=== PATIENT | male | born 1945 | race Caucasian/White ===

== ENCOUNTER → 2019-02-07 09:19 | Outpatient (CLI) | payer MEDICARE, SELFPAY ==
[2019-02-07 09:53] LABS: Add Manual Diff / Slide Review NO; Basophils Absolute Auto 100 /uL (0-100); Basophils Percent Auto 0.6 % (0-2); Eosinophils Absolute Auto 200 /uL (0-450); Eosinophils Percent Auto 1.1 % (2-4); Hematocrit 42.7 % (41-53); Hemoglobin 14.5 g/dL (13.5-17.5); Lymphocytes Absolute Auto 7100 /uL (1100-4500); Lymphocytes Percent Auto 49.4 % (25-40); Mean Corpuscular HGB Conc 33.8 % (30-36); Mean Corpuscular Volume 91.5 fL (80-100); Monocytes Absolute Auto 500 /uL (0-900); Monocytes Percent Auto 3.4 % (3-14); Neutrophils Absolute Auto 6500 /uL (1500-7000); Neutrophils Percent Auto 45.5 % (50-75); Platelet Count 195 X10^3/uL (150-400); Red Blood Cell Count 4.67 X10^6/uL (4.5-5.9); Red Cell Distribution Width 13.7 % (11.6-14.8); White Blood Cell Count 14.4 X10^3/uL (4.5-11.0)
[2019-02-07 10:12] LABS: Hemoglobin A1C% w Est Avg Glu 5.3 % (4.0-6.0)
[2019-02-07 11:41] LABS: Alanine Aminotransferase 23 IU/L (21-72); Albumin 4.2 g/dL (3.5-5.0); Albumin Globulin Ratio 1.8 (1.0-2.8); Alkaline Phosphatase 89 U/L (38-126); Aspartate Aminotransferase 15 IU/L (17-59); BUN Creatinine Ratio 17.8 (6-22); Bilirubin Total 0.5 mg/dL (0.2-1.3); Blood Urea Nitrogen 16 mg/dL (9-20); Calcium 9.4 mg/dL (8.4-10.2); Carbon Dioxide 25 mmol/L (22-32); Chloride 106 mmol/L (98-107); Estimated Glomerular Filt Rate > 60.0 mL/min (>60); Globulin 2.4 g/dL (1.7-4.1); Glucose 97 mg/dL (80-110); HEMOLYSIS < 15 (0-50); Potassium 5.2 mmol/L (3.4-5.1); Sodium 141 mmol/L (137-145); Total Protein 6.6 g/dL (6.3-8.2)
[2019-02-07 12:11] LABS: Prostate Specific Antigen 5.96 ng/mL (0.10-4.00)
== END ==
PROVIDERS: PCP Family Medicine; Visit Provider Hospitalist
DX: C61 Malignant neoplasm of prostate (principal); R21 Rash and other nonspecific skin eruption
CPT/HCPCS: 36415; 80053; 83036; 84153; 85025

== ENCOUNTER → 2019-02-21 09:17 | Outpatient (CLI) | payer MEDICARE, SELFPAY ==
[2019-02-21 10:09] LABS: Hematocrit 40.3 % (41-53); Hemoglobin 13.9 g/dL (13.5-17.5); Mean Corpuscular HGB Conc 34.5 % (30-36); Mean Corpuscular Hemoglobin 31.5 PG (26-34); Mean Corpuscular Volume 91.3 fL (80-100); Platelet Count 184 X10^3/uL (150-400); Red Blood Cell Count 4.41 X10^6/uL (4.5-5.9); Red Cell Distribution Width 13.7 % (11.6-14.8); White Blood Cell Count 10.6 X10^3/uL (4.5-11.0)
[2019-02-21 10:33] LABS: Neutrophils Absolute Manual 5512 /uL (3000-5900); Total Cells Counted 100
[2019-02-21 10:35] LABS: RBC Morphology Normal Morphology
== END ==
PROVIDERS: PCP Family Medicine; Visit Provider Hospitalist
DX: D72.820 Lymphocytosis (symptomatic) (principal)
CPT/HCPCS: 36415; 85025

== ENCOUNTER → 2021-04-18 10:21 | Outpatient (CLI) | payer MEDICARE, SELFPAY ==
[2021-04-18 11:25] LABS: Cholesterol 182 mg/dL (140-199); HDL Cholesterol 38 mg/dL (40-60); LDL Cholesterol Calculated 123 mg/dL (<100); Triglycerides 103 mg/dL (35-150)
[2021-04-18 11:44] LABS: Vitamin D 25 Hydroxy (D3) 47.3 ng/mL (30.0-100.0)
[2021-04-18 11:56] LABS: Prostate Specific Antigen 0.593 ng/mL (0.10-4.00)
== END ==
PROVIDERS: PCP Student in an Organized Health Care Education/Training Program; Referring Provider Student in an Organized Health Care Education/Training Program; Visit Provider Student in an Organized Health Care Education/Training Program
DX: C61 Malignant neoplasm of prostate (principal); I10 Essential (primary) hypertension; E55.9 Vitamin D deficiency, unspecified; Z13.220 Encounter for screening for lipoid disorders
CPT/HCPCS: 36415; 80061; 82306; 84153

== ENCOUNTER → 2021-04-21 06:51 | Outpatient (CLI) | payer MEDICARE, SELFPAY ==
--- NOTE | 2021-04-21 06:53 | DI.US.S_ITS ---
PROCEDURE: US ABD AORTA ANEURYSM SCREEN INDICATIONS: AAA SCREEN TECHNIQUE: Real time scanning was performed of the aorta and iliac arteries, with image documentation. COMPARISON: None. FINDINGS: Aorta: Proximal aortic diameter measures 2.3 cm. Mid-aorta measures 1.8 cm. Distal aortic diameter is 1.9 cm. Iliac arteries: Right common iliac artery measures 1.2 cm. Left common iliac artery measures 1.2 cm. IMPRESSION: No aneurysmal dilation. Dictated by: Lindsay Botello M.D. on 04/21/2021 at 10:39 Approved by: Lindsay Botello M.D. on 04/21/2021 at 10:39
== END ==
PROVIDERS: PCP Student in an Organized Health Care Education/Training Program; Referring Provider Student in an Organized Health Care Education/Training Program; Visit Provider Student in an Organized Health Care Education/Training Program
DX: Z13.6 Encounter for screening for cardiovascular disorders (principal); Z87.891 Personal history of nicotine dependence
CPT/HCPCS: 76706

== ENCOUNTER → 2021-04-25 08:54 | Outpatient (CLI) | payer MEDICARE, SELFPAY ==
[2021-04-26 07:14] LABS: Fecal Immunochemical Test Negative (Negative)
== END ==
PROVIDERS: PCP Student in an Organized Health Care Education/Training Program; Referring Provider Student in an Organized Health Care Education/Training Program; Visit Provider Student in an Organized Health Care Education/Training Program
DX: Z12.11 Encounter for screening for malignant neoplasm of colon (principal)
CPT/HCPCS: 82274

== ENCOUNTER → 2021-07-06 09:38 | Outpatient (CLI) | payer MEDICARE, SELFPAY ==
[2021-07-06 11:36] LABS: Alanine Aminotransferase 20 IU/L (<50); Albumin 4.3 g/dL (3.5-5.0); Albumin Globulin Ratio 1.6 (1.0-2.8); Alkaline Phosphatase 102 U/L (38-126); Aspartate Aminotransferase 22 IU/L (17-59); Bilirubin Total 0.6 mg/dL (0.2-1.3); Bilirubin Unconjugated 0.4 mg/dL (0.0-1.1); Cholesterol 153 mg/dL (140-199); Globulin 2.7 g/dL (1.7-4.1); HDL Cholesterol 36 mg/dL (40-60); HEMOLYSIS < 15 (0-50); LDL Cholesterol Calculated 98 mg/dL (<100); Triglycerides 96 mg/dL (35-150)
== END ==
PROVIDERS: PCP Student in an Organized Health Care Education/Training Program; Referring Provider Student in an Organized Health Care Education/Training Program; Visit Provider Student in an Organized Health Care Education/Training Program
DX: E78.00 Pure hypercholesterolemia, unspecified (principal); Z79.899 Other long term (current) drug therapy
CPT/HCPCS: 36415; 80061; 80076

== ENCOUNTER → 2021-10-13 14:04 | Outpatient (CLI) | payer MEDICARE, SELFPAY ==
[2021-10-13 15:43] LABS: Prostate Specific Antigen 0.398 ng/mL (0.10-4.00)
== END ==
PROVIDERS: PCP Student in an Organized Health Care Education/Training Program; Referring Provider Student in an Organized Health Care Education/Training Program; Visit Provider Student in an Organized Health Care Education/Training Program
DX: C61 Malignant neoplasm of prostate (principal)
CPT/HCPCS: 36415; 84153

== ENCOUNTER → 2022-01-10 12:48 | Outpatient (CLI) | payer MEDICARE, SELFPAY ==
--- NOTE | 2022-01-10 | DI.RAD.S_ITS ---
PROCEDURE: XR LUMBAR SPINE 2-3V INDICATIONS: back pain TECHNIQUE: 3 views of the lumbar spine were acquired. COMPARISON: [facility], , L-SPINE 2-3 VIEWS, 05/22/2012, 9:01. FINDINGS: Bones: 5 [id number] vertebrae are present. There is grade 1 retrolisthesis of L1 on L2 secondary to degenerative disc disease. No vertebral body compression fractures. No suspicious bony lesions. Disc space narrowing and degenerative endplate changes are seen at L1-2 and to a lesser extent at L5-S1. Facet hypertrophy is seen from L2-3 through L5-S1. Overall, findings have mildly progressed when compared to the prior radiographs from 05/22/2012. Soft tissues: Overlying bowel gas pattern is normal. No suspicious soft tissue calcifications. IMPRESSION: No acute osseous abnormality. Multilevel spondylosis. Dictated by: Dominick Aiken M.D. on 01/10/2022 at 16:35 Approved by: Dominick Aiken M.D. on 01/10/2022 at 16:36
== END ==
PROVIDERS: PCP Student in an Organized Health Care Education/Training Program; Referring Provider Physician Assistant; Visit Provider Physician Assistant
DX: M47.816 Spondylosis without myelopathy or radiculopathy, lumbar region (principal); M47.817 Spondylosis without myelopathy or radiculopathy, lumbosacral region; M54.50 Low back pain, unspecified
CPT/HCPCS: 72100

== ENCOUNTER → 2022-01-16 11:58 | Outpatient (CLI) | payer MEDICARE, SELFPAY ==
--- NOTE | 2022-01-16 12:00 | DI.RAD.S_ITS ---
PROCEDURE: XR ANKLE LT 2V INDICATIONS: Anterior ankle pain TECHNIQUE: 3 nonweightbearing views of the ankle were acquired. COMPARISON: None. FINDINGS: Bones: No acute fractures or dislocations. Ankle mortise is normally aligned. No suspicious bony lesions. Soft tissues: Mild soft tissue edema surrounding the ankle. No suspicious calcification. IMPRESSION: No acute osseous abnormality. If the symptoms persist, consider cross sectional imaging such as MRI or CT for further assessment. Dictated by: Dominick Aiken M.D. on 01/16/2022 at 16:37 Approved by: Dominick Aiken M.D. on 01/16/2022 at 16:45
== END ==
PROVIDERS: PCP Student in an Organized Health Care Education/Training Program; Referring Provider Student in an Organized Health Care Education/Training Program; Visit Provider Student in an Organized Health Care Education/Training Program
DX: M25.572 Pain in left ankle and joints of left foot (principal)
CPT/HCPCS: 73600

== ENCOUNTER 2022-01-23 18:12 | Emergency (ER) | payer MEDICARE, SELFPAY ==
[2022-01-23] VITALS (11 sets, daily range): BP systolic 142–191; BP diastolic 70–104; PULSE 72–93; RESP 17–30; TEMP 37; O2SAT 95–100; BMI 31.2
--- NOTE | 2022-01-23 18:40 | DI.CT.S_ITS ---
PROCEDURE: CT ABDOMEN PELVIS W CON INDICATIONS: LLQ pain, hx diverticulosis TECHNIQUE: After the administration of intravenous contrast, axial sections acquired from the lung bases to the pubic symphysis. Coronal and sagittal reformats were performed. For radiation dose reduction, the following was used: automated exposure control, adjustment of mA and/or kV according to patient size. COMPARISON: None. FINDINGS: Image quality: Excellent. Lung bases: Unremarkable. Heart: No significant findings. ABDOMEN: Liver: No focal hepatic mass. Gallbladder: Normally distended and otherwise normal. Biliary ducts: Nondilated Pancreas: Unremarkable. Spleen: Unremarkable. Adrenal Glands: Unremarkable. Kidneys and Ureters: No hydronephrosis or hydroureter. Multiple bilateral renal cysts. Symmetric bilateral perinephric fat stranding. Stomach and Bowel: No abnormally dilated or thickened loop of bowel. No pericolonic or mesenteric inflammatory fat stranding. Engorged Vasa recta adjacent to the sigmoid colon. Sigmoid diverticulosis. Peritoneum: No abnormal intraperitoneal fluid. No free air. Ventral Wall: No hernias. Abdominal Nodes: No retroperitoneal or mesenteric adenopathy by size criteria. Vessels: Aorta and inferior vena cava are normal in size. PELVIS: Pelvic Organs: Unremarkable. Bladder: Unremarkable. Pelvic Nodes: No enlarged lymph nodes. Miscellaneous: No hernias are seen. Bones: Unremarkable. IMPRESSION: Sigmoid diverticulosis with engorged Vasa recta adjacent to the sigmoid colon. This could represent early changes of sigmoid diverticulitis. No acute finding otherwise. Dictated by: Waldemar Jordan M.D. on 01/23/2022 at 19:48 Approved by: Waldemar Jordan M.D. on 01/23/2022 at 19:52
[2022-01-23] MEDS: SODIUM CHLORIDE 0.9% 1,000 ML 1000 ML IV (18:51)
[2022-01-23 18:58] LABS: Basophils Absolute Auto 0 /uL (0-100); Basophils Percent Auto 0.1 % (0-2); Eosinophils Absolute Auto 100 /uL (0-450); Eosinophils Percent Auto 0.3 % (2-4); Hematocrit 44.4 % (41-53); Hemoglobin 15.3 g/dL (13.5-17.5); Lymphocytes Absolute Auto 17600 /uL (1100-4500); Lymphocytes Percent Auto 67.5 % (25-40); Mean Corpuscular HGB Conc 34.5 % (30-36); Mean Corpuscular Hemoglobin 31.3 PG (26-34); Mean Corpuscular Volume 90.8 fL (80-100); Monocytes Absolute Auto 600 /uL (0-900); Monocytes Percent Auto 2.3 % (3-14); Neutrophils Absolute Auto 7800 /uL (1500-7000); Neutrophils Percent Auto 29.8 % (50-75); Platelet Count 212 X10^3/uL (150-400); Red Blood Cell Count 4.89 X10^6/uL (4.5-5.9); Red Cell Distribution Width 14.6 % (11.6-14.8); White Blood Cell Count 26.1 X10^3/uL (4.5-11.0)
[2022-01-23 19:16] LABS: Add Manual Diff / Slide Review SLIDE REVIEW; RBC Morphology Normal Morphology; Smudge Cells 1+
[2022-01-23 19:28] LABS: Alanine Aminotransferase 19 IU/L (<50); Albumin 4.5 g/dL (3.5-5.0); Albumin Globulin Ratio 1.6 (1.0-2.8); Alkaline Phosphatase 91 U/L (38-126); Aspartate Aminotransferase 20 IU/L (17-59); BUN Creatinine Ratio 14.1 (6-22); Bilirubin Total 0.8 mg/dL (0.2-1.3); Blood Urea Nitrogen 13 mg/dL (9-20); Calcium 9.9 mg/dL (8.4-10.2); Carbon Dioxide 24 mmol/L (22-32); Chloride 107 mmol/L (98-107); Estimated Glomerular Filt Rate > 60.0 mL/min (>60); Globulin 2.9 g/dL (1.7-4.1); Glucose 109 mg/dL (80-110); HEMOLYSIS < 15 (0-50); Lipase 69 U/L (23-300); Sodium 140 mmol/L (137-145); Total Protein 7.4 g/dL (6.3-8.2)
[2022-01-23 19:29] LABS: Lactate (Lactic Acid) 0.8 mmol/L (0.7-2.1)
--- NOTE | 2022-01-23 19:40 | ED.GENADULT ---
HPI - General Adult General Chief complaint: Abdominal Pain Stated complaint: Left Sided Abd Pain, Hx Diverticulitis Time Seen by Provider: 01/23/22 18:39 Source: patient Mode of arrival: Ambulatory History of Present Illness HPI narrative: 76-year-old gentleman with a history of hyperlipidemia has been having problems with left-sided sciatica for the last 3 weeks with unrelenting pain and sleeping only 2-3 hours a night for the last 3 weeks. He began having left lower quadrant pain 2-3 days ago that he assumed was secondary to his sciatic issues. Notes that he has had prostate cancer with radiation and does have difficulty starting his stream and completely emptying but that has not changed recently he denies any fevers until today when he had an episode where he felt warm and flushed. No vomiting. He had an episode of diarrhea here in the emergency department associated with bright red blood from his hemorrhoids. He states that he occasionally has hemorrhoidal bleeding such as this. He denies any headaches, chest pain, palpitations Related Data Home Medications Medication Instructions Recorded Confirmed tizanidine 4 mg capsule 4 mg PO TID PRN 01/16/22 01/16/22 Previous Rx's Medication Instructions Recorded pravastatin 20 mg tablet 20 mg PO BEDTIME #90 tab 11/01/21 amoxicillin-potassium clavulanate 1 tab PO BID #20 tab 01/23/22 1,000 mg-62.5 mg tablet,ext.rel 12hr (Augmentin XR) oxycodone-acetaminophen 5 mg-325 1 tab PO Q6H PRN #14 tab 01/23/22 mg tablet Allergies Allergy/AdvReac Type Severity Reaction Status Date / Time No Known Drug Allergies Allergy Verified 01/23/22 18:37 Review of Systems Review of Systems Narrative: Remainder of complete review of systems is otherwise unremarkable except for that included in the HPI. Patient History Medical History (Updated 01/23/22 @ 23:08 by Michelle Yuen MD) Melanoma Prostate CA Pure hypercholesterolemia Social History Smoking Status: Current every day smoker Smoking Status: Current every day smoker alcohol intake frequency: other Substance Use Type: marijuana Exam Initial Vital Signs Initial Vital Signs: Vital Signs Temperature 98.6 F 01/23/22 18:36 Pulse Rate 92 H 01/23/22 18:36 Respiratory Rate 17 01/23/22 18:36 Blood Pressure 142/89 H 01/23/22 18:36 Pulse Oximetry 97 01/23/22 18:36 General: Healthy appearing, in no acute distress. Able to give a complete and coherent history. Well-nourished well-developed HEENT: Moist mucous membranes, normal sclera with reactive pupils, Neck: No JVD, supple Respiratory: Lungs are clear to auscultation, no wheezing no rales no rhonchi. Full and symmetrical air movement Cardiac: Regular rate and rhythm no murmurs no bruits Abdomen: Soft, significantly tender in the left lower quadrant without rebound or guarding, good bowel tones, no flank pain Skin: Warm and dry, no rashes Neurologic: Grossly neurologically intact with no obvious asymmetries or abnormalities Spine: He does not have any tenderness along the midline lumbar or thoracic spine but there is quite a bit of muscle spasm in the left lower lumbar area Extremities: No trauma, well perfused, positive straight leg lift on the left but normal reflexes. Psych: Cooperative, appropriate insight and affect Course Orders Ordered: ED Orders 01/23/22 18:40 CT abdomen pelvis w con Stat 01/23/22 18:45 Complete Blood Count AUTO DIFF Stat Comprehensive Metabolic Panel Stat Lactate (Lactic Acid) Stat Lipase Stat Pathologist Review (for CBC) Stat 01/23/22 19:48 Urine Microscopic Stat 01/23/22 20:00 COVID19 -Nasal swab/Pre-Proc Stat 01/23/22 20:24 Blood Culture Stat Discontinued Medications Hydromorphone HCl (Hydromorphone 0.5 Mg Inj) 0.5 mg IV Q15MIN PRN PRN Reason: Pain, Last Admin: 01/23/22 20:37 Dose: 0.5 mg Documented by: ATAYLOR Sodium Chloride (Normal Saline 0.9%) 1,000 mls @ 1,000 mls/hr IV BOLUS ONE Stop: 01/23/22 19:39 Last Infusion: 01/23/22 20:40 Dose: 0 mls/hr Documented by: Admin: 01/23/22 18:51 Dose: 1,000 mls/hr Documented by: ATAYLOR Piperacillin Sod/Tazobactam (Sod 4.5 gm/ Sodium Chloride) 100 mls @ 200 mls/hr IV NOW ONE Stop: 01/23/22 19:42 Last Infusion: 01/23/22 22:20 Dose: 0 mls/hr Documented by: Admin: 01/23/22 20:37 Dose: 200 mls/hr Documented by: TYLERYLOR Sodium Chloride (Normal Saline 0.9%) 1,000 mls @ 1,000 mls/hr IV BOLUS ONE Stop: 01/23/22 20:40 Last Admin: 01/23/22 20:38 Dose: Not Given Documented by: ATAYLOR Sodium Chloride (Normal Saline 0.9%) 1,000 mls @ 150 mls/hr IV CONT CANDACE Last Infusion: 01/23/22 23:44 Dose: 0 mls/hr Documented by: Admin: 01/23/22 20:37 Dose: 150 mls/hr Documented by: OGRDY Ondansetron HCl (Ondansetron 4 Mg/2 Ml Inj) 4 mg IV NOW ONE Stop: 01/23/22 18:41 Last Admin: 01/23/22 18:50 Dose: Not Given Documented by: PRINCEOR Ondansetron HCl (Ondansetron 4 Mg/2 Ml Inj) 4 mg IV NOW ONE Stop: 01/23/22 19:42 Last Admin: 01/23/22 20:37 Dose: 4 mg Documented by: GORDY Oxycodone/Acetaminophen (Oxycodone/Apap 5/325 Prepack) 1 bottle MISC SEEINSTR ONE Stop: 01/23/22 23:13 Last Admin: 01/23/22 23:44 Dose: 1 bottle Documented by: GORDY Vital Signs Vital signs: Vital Signs - 8 hr 01/23/22 18:36 01/23/22 19:48 01/23/22 19:49 Temperature 98.6 F Pulse Rate 92 H 82 Respiratory Rate 17 Blood Pressure 142/89 H 169/74 H Pulse Oximetry 97 96 98 01/23/22 20:00 01/23/22 20:30 01/23/22 20:31 Temperature Pulse Rate 83 81 81 Respiratory Rate Blood Pressure 191/104 H Pulse Oximetry 99 97 97 01/23/22 21:00 01/23/22 21:01 01/23/22 21:30 Temperature Pulse Rate 79 80 76 Respiratory Rate Blood Pressure 146/75 H 143/78 H Pulse Oximetry 96 96 96 01/23/22 22:00 01/23/22 22:30 Temperature Pulse Rate 72 93 H Respiratory Rate 30 H Blood Pressure 151/70 H Pulse Oximetry 95 100 Medical Decision Making Lab Data Result diagrams: 01/23/22 18:45 01/23/22 18:45 Labs: Lab Results 01/23/22 01/23/22 01/23/22 Range/Units 18:45 18:45 18:45 WBC 26.1 H (4.5-11.0) X10^3/uL RBC 4.89 (4.5-5.9) X10^6/uL Hgb 15.3 (13.5-17.5) g/dL Hct 44.4 (41-53) % MCV 90.8 (80-100) fL MCH 31.3 (26-34) PG MCHC 34.5 (30-36) % RDW 14.6 (11.6-14.8) % Plt Count 212 (150-400) X10^3/uL Neut % (Auto) 29.8 L (50-75) % Lymph % (Auto) 67.5 H (25-40) % [place] % (Auto) 2.3 L (3-14) % Eos % (Auto) 0.3 L (2-4) % Baso % (Auto) 0.1 (0-2) % Neut # (Auto) 7800 H (3280-1774) /uL Lymph # (Auto) 41160 H (6380-2682) /uL [place] # (Auto) 600 (0-900) /uL Eos # (Auto) 100 (0-450) /uL Baso # (Auto) 0 (0-100) /uL [place] Cells 1+ H RBC Morphology Normal morphology Sodium 140 (137-145) mmol/L Potassium 4.0 (3.4-5.1) mmol/L Chloride 107 (98-107) mmol/L Carbon Dioxide 24 (22-32) mmol/L BUN 13 (9-20) mg/dL Creatinine 0.92 (0.66-1.25) mg/dL Estimated GFR > 60.0 (>60) mL/min BUN/Creatinine Ratio 14.1 (6-22) Glucose 109 (80-110) mg/dL Lactate 0.8 (0.7-2.1) mmol/L Calcium 9.9 (8.4-10.2) mg/dL Total Bilirubin 0.8 (0.2-1.3) mg/dL AST 20 (17-59) IU/L ALT 19 (<50) IU/L Alkaline Phosphatase 91 (38-126) U/L Total Protein 7.4 (6.3-8.2) g/dL Albumin 4.5 (3.5-5.0) g/dL Globulin 2.9 (1.7-4.1) g/dL Albumin/Globulin Ratio 1.6 (1.0-2.8) Lipase 69 (23-300) U/L Urine RBC (0-5/HPF) Urine WBC (0-5/HPF) Ur Squamous Epith Cells (0-5/HPF) Urine Bacteria (None) Urine Mucus (Negative) Ur Culture Indicated? SARS-CoV-2 (PCR) (Negative) 01/23/22 01/23/22 Range/Units 19:48 20:00 WBC (4.5-11.0) X10^3/uL RBC (4.5-5.9) X10^6/uL Hgb (13.5-17.5) g/dL Hct (41-53) % MCV (80-100) fL MCH (26-34) PG MCHC (30-36) % RDW (11.6-14.8) % Plt Count (150-400) X10^3/uL Neut % (Auto) (50-75) % Lymph % (Auto) (25-40) % [place] % (Auto) (3-14) % Eos % (Auto) (2-4) % Baso % (Auto) (0-2) % Neut # (Auto) (5405-7831) /uL Lymph # (Auto) (3147-7311) /uL [place] # (Auto) (0-900) /uL Eos # (Auto) (0-450) /uL Baso # (Auto) (0-100) /uL [place] Cells RBC Morphology Sodium (137-145) mmol/L Potassium (3.4-5.1) mmol/L Chloride (98-107) mmol/L Carbon Dioxide (22-32) mmol/L BUN (9-20) mg/dL Creatinine (0.66-1.25) mg/dL Estimated GFR (>60) mL/min BUN/Creatinine Ratio (6-22) Glucose (80-110) mg/dL Lactate (0.7-2.1) mmol/L Calcium (8.4-10.2) mg/dL Total Bilirubin (0.2-1.3) mg/dL AST (17-59) IU/L ALT (<50) IU/L Alkaline Phosphatase (38-126) U/L Total Protein (6.3-8.2) g/dL Albumin (3.5-5.0) g/dL Globulin (1.7-4.1) g/dL Albumin/Globulin Ratio (1.0-2.8) Lipase (23-300) U/L Urine RBC 0-1/hpf (0-5/HPF) Urine WBC 0-1/hpf (0-5/HPF) Ur Squamous Epith Cells 0-1 /hpf (0-5/HPF) Urine Bacteria None seen (None) Urine Mucus 1+ H (Negative) Ur Culture Indicated? Cult not indicated SARS-CoV-2 (PCR) Negative (Negative) Urine Dip Bedside Urine Glucose Negative Bedside Urine Bilirubin - Negative Bedside Urine Ketone ++ 40 Urine Specific [place] 1.025 Bedside Urine Occult Blood - Negative Bedside Urine pH 6.0 Bedside Urine Protein - Negative Bedside Urine Urobilinogen - Negative Bedside Urine Nitrite - Negative Bedside Urine Leukocytes - Negative Esterase Point of care testing: Urine Dip Bedside Urine Glucose Negative Bedside Urine Bilirubin - Negative Bedside Urine Ketone ++ 40 Urine Specific [place] 1.025 Bedside Urine Occult Blood - Negative Bedside Urine pH 6.0 Bedside Urine Protein - Negative Bedside Urine Urobilinogen - Negative Bedside Urine Nitrite - Negative Bedside Urine Leukocytes - Negative Esterase Imaging Data CT scan - abdomen/pelvis: Radiologist's Impression: FINDINGS:? Image quality:? Excellent.? ? Lung bases:? Unremarkable. Heart:? No significant findings. ? ABDOMEN: Liver:? No focal hepatic mass. Gallbladder:? Normally distended and otherwise normal.? ? Biliary ducts:? Nondilated Pancreas:? Unremarkable.? ? Spleen:? Unremarkable.? ? Adrenal Glands:? Unremarkable.? ? Kidneys and Ureters:? No hydronephrosis or hydroureter.? Multiple bilateral renal cysts.? Symmetric bilateral perinephric fat stranding. ? Stomach and Bowel:? No abnormally dilated or thickened loop of bowel.? No pericolonic or mesenteric inflammatory fat stranding.? Engorged Vasa recta adjacent to the sigmoid colon.? Sigmoid diverticulosis. Peritoneum:? No abnormal intraperitoneal fluid.? No free air.? ? Ventral Wall: ? No hernias.? Abdominal Nodes:? No retroperitoneal or mesenteric adenopathy by size criteria.? Vessels:? Aorta and inferior vena cava are normal in size.? ? PELVIS: Pelvic Organs:? Unremarkable.? ? Bladder:? Unremarkable.? ? Pelvic Nodes: No enlarged lymph nodes.? Miscellaneous: No hernias are seen. ? ? ? Bones:? Unremarkable.? IMPRESSION:? Sigmoid diverticulosis with engorged Vasa recta adjacent to the sigmoid colon.? This could represent early changes of sigmoid diverticulitis.? No acute finding otherwise. ? ? Dictated by: Waldemar Jordan M.D. on 01/23/2022 at 19:48 ? ? MDM Narrative Medical decision making narrative: 76-year-old gentleman with significant sciatic issues over the last 3 weeks it does seem to be slightly improving and is being followed by his primary care physician presents with left lower quadrant pain. White count is significantly elevated and CT scan shows diverticulosis with engorged Vasa recta suggesting that this may be a developing diverticulitis. This is overall consistent with his presenting history. There is no evidence of abscess or need for surgical intervention. I do not suspect epidural abscess. Reviewed findings with the patient. Will recommend Augmentin p.o. b.i.d. for 10 days and will give him a short course of Percocet to help with pain. He notes he does have laxatives available at home to prevent any constipation and we did review this clearly as severe constipation can obviously make the developing diverticulitis worse. Questions are answered and he is safe for home discharge Discharge Plan Departure Patient Disposition: Home Clinical Impression: Diverticulitis, Acute low back pain with radicular symptoms, duration less than 6 weeks Instructions: DI for Diverticulitis Activity Restrictions/Additional Instructions: Thank you for coming in today Your lab work had significantly elevated white blood cell count which made me concerned that you had a significant developing infection. Your CT scan suggests that you likely have developing diverticulitis but you do not have an abscess and do not need to be hospitalized. Please compete a course of Augmentin, 1 pill in the morning and 1 in the evening for 10 full days. [facility] You can use 1-2 Percocet to help with pain as needed. Percocet can cause constipation which can make her diverticulitis worse. Please use stool softeners and laxatives as needed. If you have worsening symptoms, please feel free to return to the ER Prescriptions: New amoxicillin-pot clavulanate [Augmentin XR] 1,000-62.5 mg tablet extended release 12 hr 1 tab PO BID Qty: 20 0RF oxycodone-acetaminophen 5-325 mg tablet 1 tab PO Q6H PRN (Reason: pain) Qty: 14 0RF No Action pravastatin 20 mg tablet 20 mg PO BEDTIME Qty: 90 3RF tizanidine 4 mg capsule 4 mg PO TID [id number] Referrals: Ron Salmeron MD [Primary Care Provider] -
[2022-01-23 20:15] LABS: Bacteria Urine None Seen; Culture Indicated Urine Cult Not Indicated; Mucus Urine 1+ (Negative); RBC Urine 0-1/HPF (0-5/HPF); Squamous Epithelial Cell Urine 0-1 /HPF (0-5/HPF); WBC Urine 0-1/HPF (0-5/HPF)
[2022-01-23 20:17] LABS: COVID19 -Nasal RAPID Negative (Negative)
[2022-01-23] MEDS: ONDANSETRON 4 MG/2 ML INJ IV (20:37)
[2022-01-23] MEDS: HYDROMORPHONE 0.5 MG INJ IV (20:37)
[2022-01-23] MEDS: SODIUM CHLORIDE 0.9% 1,000 ML 150 ML IV (20:37)
[2022-01-23] MEDS: PIPERACILLIN/TAZO 4.5 GM in SODIUM CHLORIDE 0.9% 100 ML 200 ML IV (20:37)
[2022-01-23] MEDS: OXYCODONE/APAP 5/325 PREPACK 1 BOTTLE MISC (23:44)
== END 2022-01-23 23:50 | disposition home or self-care (01) ==
PROVIDERS: Emergency Provider Emergency Medicine; PCP Student in an Organized Health Care Education/Training Program
DX: K57.32 Diverticulitis of large intestine without perforation or abscess without bleeding (principal); M54.50 Low back pain, unspecified; M54.10 Radiculopathy, site unspecified; F17.200 Nicotine dependence, unspecified, uncomplicated; Z20.822 Contact with and (suspected) exposure to COVID-19
CPT/HCPCS: 36415; 74177; 80053; 81003; 81015; 83605; 83690; 85025; 87040; 87635; 96361; 96365; 96366; 96375; 99284; C9803; J1170; J2405; J2543; Q9967

== ENCOUNTER → 2022-05-24 15:19 | Outpatient (CLI) | payer MEDICARE, SELFPAY ==
[2022-05-25 10:35] LABS: Fecal Immunochemical Test Negative (Negative)
== END ==
PROVIDERS: PCP Student in an Organized Health Care Education/Training Program; Referring Provider Student in an Organized Health Care Education/Training Program; Visit Provider Student in an Organized Health Care Education/Training Program
DX: Z12.11 Encounter for screening for malignant neoplasm of colon (principal)
CPT/HCPCS: 82274

== ENCOUNTER → 2022-06-09 13:36 | Outpatient (CLI) | payer MEDICARE, SELFPAY ==
--- NOTE | 2022-06-09 13:37 | DI.MRI.S_ITS ---
PROCEDURE: MR LUMBAR SPINE WO CON INDICATIONS: Left sided radiclopathy and myelopathy TECHNIQUE: Noncontrast sagittal T1 spin echo and T2 fast echo, sagittal STIR, and T2 fast spin echo through the lumbar spine. In cases with scoliosis, additional coronal T2 fast spin echo may be performed. COMPARISON: [facility], CR, XR LUMBAR SPINE 2-3V, 01/10/2022, 12:44. FINDINGS: Image quality: Excellent. Alignment and Curvature: 5 mm retrolisthesis of L1 on L2. 4 mm retrolisthesis of L5 on S1. Bone Marrow: Marrow is of normal overall signal. No acute vertebral body compression fractures. Spinal Cord: Conus medullaris terminates at the T12 level. Visualized cord demonstrates normal signal and size. Paraspinous Soft Tissues: No paravertebral masses. T12-L1: Mild disc bulge. No canal stenosis or foraminal stenosis. L1-L2: Retrolisthesis of L1 on L2. Facet hypertrophy. Mild canal stenosis. Moderate bilateral foraminal narrowing with mild flattening deformity on the exiting bilateral L1 nerve roots. L2-L3: Disc bulge. Facet hypertrophy. Mild canal stenosis. Cugi-[id number] bilateral foraminal narrowing. L3-L4: Disc bulge. Facet hypertrophy. Mild canal stenosis. Mild to moderate bilateral foraminal narrowing. L4-L5: Disc bulge. Facet hypertrophy. Mild canal stenosis. In the left lateral recess, below the exiting left L4 nerve root there is either a small free disc fragment or a left facet joint cyst. It measures approximately 7 x 6 x 6 mm. It impinges on the left L5 nerve root in the left lateral recess. Reference image 11/2 and image 25/5. There is [id number] bilateral foraminal narrowing. L5-S1: Retrolisthesis of L5 on S1 associated with diffuse posterior disc plus osteophyte. Disc material abuts the left S1 nerve root in the left lateral recess. No central canal stenosis. [id number] bilateral foraminal narrowing. IMPRESSION: 1. Multilevel facet arthropathy. 2. There is mild central canal stenosis at L1-L2, L2-L3, and L3-L4 and L4-L5. 3. At L4-L5, there is either a small free disc fragment in the left lateral recess or a left facet joint cyst. This impinges on the left L5 nerve root in the left lateral recess. 4. Multilevel foraminal narrowing as described above. Dictated by: Liang Whiteside M.D. on 06/09/2022 at 15:28 Approved by: Liang Whiteside M.D. on 06/09/2022 at 15:36
== END ==
PROVIDERS: PCP Student in an Organized Health Care Education/Training Program; Referring Provider Student in an Organized Health Care Education/Training Program; Visit Provider Student in an Organized Health Care Education/Training Program
DX: M47.816 Spondylosis without myelopathy or radiculopathy, lumbar region (principal); M48.061 Spinal stenosis, lumbar region without neurogenic claudication; M54.42 Lumbago with sciatica, left side; G12.9 Spinal muscular atrophy, unspecified
CPT/HCPCS: 72148

== ENCOUNTER 2022-06-09 17:18 | Emergency (ER) | payer MEDICARE, SELFPAY ==
[2022-06-09] VITALS (22 sets, daily range): BP systolic 139–188; BP diastolic 77–101; PULSE 52–103; RESP 16–36; TEMP 36.4; O2SAT 79–97; BMI 29.1
--- NOTE | 2022-06-09 17:30 | DI.RAD.S_ITS ---
PROCEDURE: XR CHEST 2V INDICATIONS: shortness of breath TECHNIQUE: 2 views of the chest were acquired. COMPARISON: [facility], MR, MR LUMBAR SPINE WO CON, 06/09/2022, 13:42. [facility], CR, CHEST 2 VIEW, 06/19/2013, 7:28. [facility], , CHEST 2 VIEW, 10/09/2017, 10:20. FINDINGS: Surgical changes and devices: None. Lungs and pleura: Lungs are clear. No pleural effusions or pneumothorax. The lungs are hyperexpanded, with flattening of the hemidiaphragms seen. Mediastinum: The cardiac contours are within normal limits. The aorta demonstrates calcification and tortuosity. Bones and chest wall: No suspicious bony abnormalities. Age-appropriate bony degenerative changes are seen. Soft tissues appear unremarkable. IMPRESSION: Hyperexpanded lungs, without an acute cardiopulmonary process identified. Dictated by: Bartolo Awan M.D. on 06/09/2022 at 17:05 Approved by: Bartolo Awan M.D. on 06/09/2022 at 17:06
--- NOTE | 2022-06-09 17:35 | PC.NURSE ---
Provider notified of pt trigeminy PVCs and appears short of breath at rest. Provider at bedside.
[2022-06-09 17:59] LABS: Alanine Aminotransferase 27 IU/L (<50); Albumin 4.1 g/dL (3.5-5.0); Albumin Globulin Ratio 1.3 (1.0-2.8); Alkaline Phosphatase 105 U/L (38-126); Aspartate Aminotransferase 27 IU/L (17-59); BUN Creatinine Ratio 16.8 (6-22); Bilirubin Total 0.7 mg/dL (0.2-1.3); Blood Urea Nitrogen 19 mg/dL (9-20); Calcium 9.1 mg/dL (8.4-10.2); Carbon Dioxide 25 mmol/L (22-32); Chloride 108 mmol/L (98-107); Estimated Glomerular Filt Rate > 60 mL/min (>60); Globulin 3.2 g/dL (1.7-4.1); Glucose 115 mg/dL (80-110); HEMOLYSIS 16 (0-50); Potassium 4.2 mmol/L (3.4-5.1); Sodium 141 mmol/L (137-145); Total Protein 7.3 g/dL (6.3-8.2)
--- NOTE | 2022-06-09 18:04 | ED.SOB ---
HPI - SOB/Dyspnea <Tracy gN DO - Last Filed: 06/10/22 07:09> General Chief Complaint: Shortness of Breath/Dyspnea Stated Complaint: SOB, Chest pains, Sent from [facility] Time Seen by Provider: 06/09/22 18:04 Source: patient Mode of arrival: Ambulatory Limitations: no limitations History of Present Illness HPI Narrative: Patient is a 76-year-old male history of hyperlipidemia presenting today with increasing shortness of breath with exertion. Today he noticed he had a little bit of left-sided chest discomfort. He has not had any fever chills or cough. He denies any orthopnea. He denies any recent travel. He was actually here for an outpatient MRI of his lumbar spine because he has left foot drop from sciatic up. He has significant stress at home his is on hospice with dementia. He is very tearful upon questioning. He initially was seen at the walk-in clinic concerned for increasing shortness of breath with exertion and sent to the ED for further evaluation. Related Data Previous Rx's Medication Instructions Recorded pravastatin 20 mg tablet 20 mg PO BEDTIME #90 tabs 03/02/22 tizanidine 4 mg tablet 4 mg PO Q8H PRN muscle spasticity 03/21/22 #30 tabs Allergies Allergy/AdvReac Type Severity Reaction Status Date / Time No Known Drug Allergies Allergy Verified 06/09/22 17:26 <Michelle Yuen MD - Last Filed: 06/10/22 04:32> History of Present Illness HPI Narrative: Patient is a 76-year-old male history of hyperlipidemia, prostate cancer, prior melanoma and is the primary caregiver for who is currently on hospice and close to the end of her life, presenting today with increasing shortness of breath with exertion. Today he noticed he had a little bit of left-sided chest discomfort. He has not had any fever chills or cough. He denies any orthopnea. He denies any recent travel. He was actually here for an outpatient MRI of his lumbar spine because he has left foot drop from sciatic up. He has significant stress at home his is on hospice with dementia. He is very tearful upon questioning. He initially was seen at the walk-in clinic concerned for increasing shortness of breath with exertion and sent to the ED for further evaluation. Review of Systems <Tracy Ng DO - Last Filed: 06/10/22 07:09> Review of Systems Narrative: GENERAL: Denies chills, fatigue, malaise, fever, sweats, travel HEENT: Denies sinus pain, ear pain, sore throat, difficulty swallowing, neck pain RESPIRATORY: See HPI CARDIOVASCULAR: See HPI GASTROINTESTINAL: Denies nausea, vomiting, abdominal pain, diarrhea, constipation, melena. : Denies dysuria, frequency, incontinence, hematuria, urinary retention, flank pain. MUSCULOSKELETAL: Denies weakness, joint pain, or bony pain SKIN: No rash, no erythema, no pruritus NEUROLOGIC: Denies weakness, dizziness, headache, numbness, change in speech, confusion PSYCHIATRIC: No concerning psychosocial issues. 12 point review of systems is negative except for those stated above and HPI Patient History <Tracy Ng DO - Last Filed: 06/10/22 07:09> Medical History Melanoma Prostate CA Pure hypercholesterolemia Social History Smoking Status: Former smoker alcohol intake: former Smoking Status: Former smoker alcohol intake frequency: other Substance Use Type: marijuana Exam <Tracy Ng DO - Last Filed: 06/10/22 07:09> Initial Vital Signs Initial Vital Signs: Vital Signs Temperature 97.5 F L 06/09/22 17:21 Pulse Rate 83 06/09/22 17:21 Respiratory Rate 22 06/09/22 17:21 Blood Pressure 188/101 H 06/09/22 17:21 Pulse Oximetry 97 06/09/22 17:21 Oxygen Delivery Method 06/09/22 17:21 GENERAL: Alert tearful 76 male and in [no acute] distress. HEENT: Head atraumatic,EOMI, pupils reactive, face symmetric, [moist] mucous membranes CARDIOVASCULAR: Regular rate and rhythm without murmurs, rubs or gallops. RESPIRATORY: Breath sounds equal bilaterally, no wheezes rales or rhonchi. ABDOMEN: Soft, nontender. Normoactive bowel sounds all 4 quadrants. No guarding or rebound. EXTREMITIES: Normal range of motion, no clubbing or edema. Neurovascularly intact NEUROLOGICAL: Alert and oriented x4.Normal gait and speech. SKIN: Warm, dry, no laceration, no petechiae, no rashes or lesions. <Michelle Yuen MD - Last Filed: 06/10/22 04:32> Initial Vital Signs Initial Vital Signs: Vital Signs Temperature 97.5 F L 06/09/22 17:21 Pulse Rate 83 06/09/22 17:21 Respiratory Rate 22 06/09/22 17:21 Blood Pressure 188/101 H 06/09/22 17:21 Pulse Oximetry 97 06/09/22 17:21 Oxygen Delivery Method 06/09/22 17:21 Course <Tracy Ng DO - Last Filed: 06/10/22 07:09> Orders Ordered: ED Orders 06/10/22 EKG-12 Lead Routine Discontinued Medications Heparin Sodium (Porcine) (Heparin 5,000 Unit/Ml Vial) 7,500 unit IV NOW ONE Stop: 06/09/22 19:31 Last Admin: 06/09/22 19:40 Dose: 7,500 unit Documented By: DEVORAH Hydromorphone HCl (Hydromorphone 0.5 Mg Inj) 0.5 mg IV Q15MIN PRN PRN Reason: Pain, Last Admin: 06/09/22 21:32 Dose: 0.5 mg Documented By: DEVORAH Heparin Sodium/Dextrose (Heparin Drip) 25,000 unit in 500 mls @ 24 mls/hr IV CONT CANDACE; Protocol Last Titration: 06/09/22 19:47 Dose: 1,728 units/hr, 34.56 mls/hr Documented By: Admin: 06/09/22 19:41 Dose: 1,200 units/hr, 24 mls/hr Documented By: DEVORAH Vital Signs Vital signs: Vital Signs - 8 hr 06/09/22 20:30 06/09/22 20:57 06/09/22 20:57 Pulse Rate 94 H 91 H Respiratory Rate 33 H 26 H Blood Pressure 151/83 H Pulse Oximetry 95 96 06/09/22 20:59 06/09/22 21:00 06/09/22 21:00 Pulse Rate 90 89 Respiratory Rate 27 H 35 H Blood Pressure 151/84 H Pulse Oximetry 96 96 06/09/22 21:10 06/09/22 21:10 06/09/22 21:20 Pulse Rate 91 H Respiratory Rate 27 H Blood Pressure 158/92 H 148/80 H Pulse Oximetry 94 06/09/22 21:20 06/09/22 21:30 06/09/22 21:30 Pulse Rate 91 H 93 H Respiratory Rate 24 24 Blood Pressure 150/92 H Pulse Oximetry 95 95 06/09/22 21:40 06/09/22 21:40 06/09/22 21:50 Pulse Rate 90 89 Respiratory Rate 27 H 22 Blood Pressure 151/97 H Pulse Oximetry 95 94 06/09/22 21:50 06/09/22 22:00 06/09/22 22:00 Pulse Rate 91 H Respiratory Rate 22 Blood Pressure 156/98 H 159/98 H Pulse Oximetry 96 06/09/22 22:10 06/09/22 22:10 06/09/22 22:20 Pulse Rate 103 H Respiratory Rate 20 Blood Pressure 150/90 H 150/95 H Pulse Oximetry 94 06/09/22 22:20 Pulse Rate 91 H Respiratory Rate 22 Blood Pressure Pulse Oximetry 95 <Michelle Yuen MD - Last Filed: 06/10/22 04:32> Orders Ordered: ED Orders 06/10/22 EKG-12 Lead Routine Discontinued Medications Heparin Sodium (Porcine) (Heparin 5,000 Unit/Ml Vial) 7,500 unit IV NOW ONE Stop: 06/09/22 19:31 Last Admin: 06/09/22 19:40 Dose: 7,500 unit Documented By: DEVORAH Hydromorphone HCl (Hydromorphone 0.5 Mg Inj) 0.5 mg IV Q15MIN PRN PRN Reason: Pain, Last Admin: 06/09/22 21:32 Dose: 0.5 mg Documented By: DEVORAH Heparin Sodium/Dextrose (Heparin Drip) 25,000 unit in 500 mls @ 24 mls/hr IV CONT CANDACE; Protocol Last Titration: 06/09/22 19:47 Dose: 1,728 units/hr, 34.56 mls/hr Documented By: Admin: 06/09/22 19:41 Dose: 1,200 units/hr, 24 mls/hr Documented By: DEVORAH Vital Signs Vital signs: Vital Signs - 8 hr 06/09/22 20:30 06/09/22 20:57 06/09/22 20:57 Pulse Rate 94 H 91 H Respiratory Rate 33 H 26 H Blood Pressure 151/83 H Pulse Oximetry 95 96 06/09/22 20:59 06/09/22 21:00 06/09/22 21:00 Pulse Rate 90 89 Respiratory Rate 27 H 35 H Blood Pressure 151/84 H Pulse Oximetry 96 96 06/09/22 21:10 06/09/22 21:10 06/09/22 21:20 Pulse Rate 91 H Respiratory Rate 27 H Blood Pressure 158/92 H 148/80 H Pulse Oximetry 94 06/09/22 21:20 06/09/22 21:30 06/09/22 21:30 Pulse Rate 91 H 93 H Respiratory Rate 24 24 Blood Pressure 150/92 H Pulse Oximetry 95 95 06/09/22 21:40 06/09/22 21:40 06/09/22 21:50 Pulse Rate 90 89 Respiratory Rate 27 H 22 Blood Pressure 151/97 H Pulse Oximetry 95 94 06/09/22 21:50 06/09/22 22:00 06/09/22 22:00 Pulse Rate 91 H Respiratory Rate 22 Blood Pressure 156/98 H 159/98 H Pulse Oximetry 96 06/09/22 22:10 06/09/22 22:10 06/09/22 22:20 Pulse Rate 103 H Respiratory Rate 20 Blood Pressure 150/90 H 150/95 H Pulse Oximetry 94 06/09/22 22:20 Pulse Rate 91 H Respiratory Rate 22 Blood Pressure Pulse Oximetry 95 MDM - SOB/Dyspnea <Tracy Ng, DO - Last Filed: 06/10/22 07:09> Lab Data Result diagrams: 06/09/22 17:35 06/09/22 17:35 Labs: Lab Results 06/09/22 06/09/22 06/09/22 Range/Units 17:35 17:35 17:35 WBC 29.7 H (4.5-11.0) X10^3/uL RBC 4.31 L (4.5-5.9) X10^6/uL Hgb 13.5 (13.5-17.5) g/dL Hct 39.5 L (41-53) % MCV 91.7 (80-100) fL MCH 31.2 (26-34) PG MCHC 34.1 (30-36) % RDW 14.2 (11.6-14.8) % Plt Count 184 (150-400) X10^3/uL Neut % (Auto) 35.3 L (50-75) % Lymph % (Auto) 60.2 H (25-40) % [place] % (Auto) 3.5 (3-14) % Eos % (Auto) 0.3 L (2-4) % Baso % (Auto) 0.7 (0-2) % Neut # (Auto) 16823 H (4671-2677) /uL Lymph # (Auto) 95230 H (5417-1339) /uL [place] # (Auto) 1000 H (0-900) /uL Eos # (Auto) 100 (0-450) /uL Baso # (Auto) 200 H (0-100) /uL Smudge Cells 2+ H WBC Morphology Comment Note RBC Morphology Normal morphology APTT (26.4-36.2) SECONDS Sodium 141 (137-145) mmol/L Potassium 4.2 (3.4-5.1) mmol/L Chloride 108 H (98-107) mmol/L Carbon Dioxide 25 (22-32) mmol/L BUN 19 (9-20) mg/dL Creatinine 1.13 (0.66-1.25) mg/dL Estimated GFR > 60 (>60) mL/min BUN/Creatinine Ratio 16.8 (6-22) Glucose 115 H (80-110) mg/dL Lactate 1.0 (0.7-2.1) mmol/L Calcium 9.1 (8.4-10.2) mg/dL Total Bilirubin 0.7 (0.2-1.3) mg/dL AST 27 (17-59) IU/L ALT 27 (<50) IU/L Alkaline Phosphatase 105 (38-126) U/L Total Creatine Kinase (55-170) U/L CK-MB (CK-2) CK-MB (CK-2) Rel Index Troponin I (0.01-0.034) ng/mL NT-Pro-B Natriuret Pep (<450) pg/mL Total Protein 7.3 (6.3-8.2) g/dL Albumin 4.1 (3.5-5.0) g/dL Globulin 3.2 (1.7-4.1) g/dL Albumin/Globulin Ratio 1.3 (1.0-2.8) Procalcitonin (<0.5) ng/mL Urine Color Urine Appearance Urine pH (4.5-8.0) Ur Specific [place] (1.000-1.035) Urine Protein (Negative) Urine Glucose (UA) (Negative) g/dL Urine Ketones (NEGATIVE) Urine Occult Blood (Negative) Urine Nitrate (Negative) Urine Bilirubin (NEGATIVE) Urine Urobilinogen (0.2) E.U./dL Ur Leukocyte Esterase (NEGATIVE) Urine RBC (0-5/HPF) Urine WBC (0-5/HPF) Ur Squamous Epith Cells (0-5/HPF) Uric Acid Crystals (None) Amorphous Sediment Urine Bacteria (None) Ur Culture Indicated? SARS-CoV-2 (PCR) (Negative) 06/09/22 06/09/22 06/09/22 Range/Units 17:35 17:35 17:35 WBC (4.5-11.0) X10^3/uL RBC (4.5-5.9) X10^6/uL Hgb (13.5-17.5) g/dL Hct (41-53) % MCV (80-100) fL MCH (26-34) PG MCHC (30-36) % RDW (11.6-14.8) % Plt Count (150-400) X10^3/uL Neut % (Auto) (50-75) % Lymph % (Auto) (25-40) % [place] % (Auto) (3-14) % Eos % (Auto) (2-4) % Baso % (Auto) (0-2) % Neut # (Auto) (1735-1413) /uL Lymph # (Auto) (9370-4284) /uL [place] # (Auto) (0-900) /uL Eos # (Auto) (0-450) /uL Baso # (Auto) (0-100) /uL Smudge Cells WBC Morphology Comment RBC Morphology APTT 30 (26.4-36.2) SECONDS Sodium (137-145) mmol/L Potassium (3.4-5.1) mmol/L Chloride (98-107) mmol/L Carbon Dioxide (22-32) mmol/L BUN (9-20) mg/dL Creatinine (0.66-1.25) mg/dL Estimated GFR (>60) mL/min BUN/Creatinine Ratio (6-22) Glucose (80-110) mg/dL Lactate (0.7-2.1) mmol/L Calcium (8.4-10.2) mg/dL Total Bilirubin (0.2-1.3) mg/dL AST (17-59) IU/L ALT (<50) IU/L Alkaline Phosphatase (38-126) U/L Total Creatine Kinase 61 (55-170) U/L CK-MB (CK-2) TNP CK-MB (CK-2) Rel Index TNP Troponin I 0.083 H (0.01-0.034) ng/mL NT-Pro-B Natriuret Pep 2450 H (<450) pg/mL Total Protein (6.3-8.2) g/dL Albumin (3.5-5.0) g/dL Globulin (1.7-4.1) g/dL Albumin/Globulin Ratio (1.0-2.8) Procalcitonin 0.11 (<0.5) ng/mL Urine Color Urine Appearance Urine pH (4.5-8.0) Ur Specific [place] (1.000-1.035) Urine Protein (Negative) Urine Glucose (UA) (Negative) g/dL Urine Ketones (NEGATIVE) Urine Occult Blood (Negative) Urine Nitrate (Negative) Urine Bilirubin (NEGATIVE) Urine Urobilinogen (0.2) E.U./dL Ur Leukocyte Esterase (NEGATIVE) Urine RBC (0-5/HPF) Urine WBC (0-5/HPF) Ur Squamous Epith Cells (0-5/HPF) Uric Acid Crystals (None) Amorphous Sediment Urine Bacteria (None) Ur Culture Indicated? SARS-CoV-2 (PCR) (Negative) 06/09/22 06/09/22 Range/Units 17:45 18:55 WBC (4.5-11.0) X10^3/uL RBC (4.5-5.9) X10^6/uL Hgb (13.5-17.5) g/dL Hct (41-53) % MCV (80-100) fL MCH (26-34) PG MCHC (30-36) % RDW (11.6-14.8) % Plt Count (150-400) X10^3/uL Neut % (Auto) (50-75) % Lymph % (Auto) (25-40) % [place] % (Auto) (3-14) % Eos % (Auto) (2-4) % Baso % (Auto) (0-2) % Neut # (Auto) (7599-9896) /uL Lymph # (Auto) (3873-8028) /uL [place] # (Auto) (0-900) /uL Eos # (Auto) (0-450) /uL Baso # (Auto) (0-100) /uL Smudge Cells WBC Morphology Comment RBC Morphology APTT (26.4-36.2) SECONDS Sodium (137-145) mmol/L Potassium (3.4-5.1) mmol/L Chloride (98-107) mmol/L Carbon Dioxide (22-32) mmol/L BUN (9-20) mg/dL Creatinine (0.66-1.25) mg/dL Estimated GFR (>60) mL/min BUN/Creatinine Ratio (6-22) Glucose (80-110) mg/dL Lactate (0.7-2.1) mmol/L Calcium (8.4-10.2) mg/dL Total Bilirubin (0.2-1.3) mg/dL AST (17-59) IU/L ALT (<50) IU/L Alkaline Phosphatase (38-126) U/L Total Creatine Kinase (55-170) U/L CK-MB (CK-2) CK-MB (CK-2) Rel Index Troponin I (0.01-0.034) ng/mL NT-Pro-B Natriuret Pep (<450) pg/mL Total Protein (6.3-8.2) g/dL Albumin (3.5-5.0) g/dL Globulin (1.7-4.1) g/dL Albumin/Globulin Ratio (1.0-2.8) Procalcitonin (<0.5) ng/mL Urine Color Yellow Urine Appearance Clear Urine pH 5.0 (4.5-8.0) Ur Specific [place] 1.015 (1.000-1.035) Urine Protein Trace H (Negative) Urine Glucose (UA) Negative (Negative) g/dL Urine Ketones 1+ H (NEGATIVE) Urine Occult Blood Trace-intact (Negative) Urine Nitrate Negative (Negative) Urine Bilirubin Negative (NEGATIVE) Urine Urobilinogen 0.2 (0.2) E.U./dL Ur Leukocyte Esterase Negative (NEGATIVE) Urine RBC 5-10/hpf H (0-5/HPF) Urine WBC None seen (0-5/HPF) Ur Squamous Epith Cells 5-10 /hpf H (0-5/HPF) Uric Acid Crystals Moderate H (None) Amorphous Sediment 2+ Urine Bacteria Few (2-10) H (None) Ur Culture Indicated? Cult not indicated SARS-CoV-2 (PCR) Negative (Negative) MDM Narrative Medical decision making narrative: Patient presenting today with 3 days of increasing shortness of breath. Blood work is pending signed out to Dr. Yuen. 76-year-old gentleman with sciatic type pain with an MRI ordered today that does show a small free disc fragment in the left lateral recess or left facet joint cyst at the L4-5 level that is impinging on the L5 nerve root that is consistent with his symptoms. While at MRI was complaining of dyspnea and was seen in the emergency department. He is subsequently found to have a large saddle pulmonary emboli with near occlusive clot in the middle pulmonary arterial structures bilaterally. Does have reversal of the normal RV/LV ratio suggesting right heart strain additionally with inferior lingula atelectasis appreciated question of a pulmonary malignancy is also entertained. According to Dr. Whiteside, radiologist the location and volume of clot would likely be amenable to interventional thrombectomy. He is started on heparin. White count is significantly elevated at 29.7 with elevated lymphocytes. Similar finding was in December of this year. Lab work was reviewed with Dr. Spring oncology. Most likely explanation is developing CLL rather than acute infection or any type of acute leukemia. Will need additional workup as an outpatient. Because of the elevated white count shortness of breath and uncertain initial etiologies, CT scans of the chest abdomen and pelvis were done looking for infectious etiology. Chest shows the pulmonary embolisms and possible lingular malignancy. Abdomen shows no significant pathology. 915 patient is re-examined and all of his findings reviewed with him. He is hemodynamically stable, having some mild right-sided pleuritic chest pain with deep breathing. Able to speak in full sentences. He is interested in pursuing possibility of thrombectomy if indicated. He is tolerating heparin currently. He is aware of the possibility of pulmonary malignancy, possibility of CLL and did let him know that he had actual physiologic findings to explain the neuropathy that he had been experiencing in the right leg. He also notes his is on hospice currently minimally eating and has days to weeks at most. He would like to proceed with whatever treatment is most expedient and gets him home with the least symptoms so that he can be available for his at the end of her life and then will move forward with dealing with some of the other concerns identified today as well. Will begin calling to see if there any facilities that have spacing capacity for pulmonary embolism thrombectomy. [address] Del Toro, air and missile defense crewmember [facility]. He suggested ED ED transfer and he will take patient to equipment operator/laborer for thrombectomy. All findings were reviewed with him including the possible new lingular cancer diagnosis new CLL diagnosis. Care is reviewed with Dr. Elver Larson in the emergency department. Accepts ED- ED transfer. Care is reviewed with patient who is amenable to transfer. ALS transfer will be arranged [address] Del Toro updated. <Michelle Yuen MD - Last Filed: 06/10/22 04:32> Lab Data Labs: Lab Results 06/09/22 06/09/22 06/09/22 Range/Units 17:35 17:35 17:35 WBC 29.7 H (4.5-11.0) X10^3/uL RBC 4.31 L (4.5-5.9) X10^6/uL Hgb 13.5 (13.5-17.5) g/dL Hct 39.5 L (41-53) % MCV 91.7 (80-100) fL MCH 31.2 (26-34) PG MCHC 34.1 (30-36) % RDW 14.2 (11.6-14.8) % Plt Count 184 (150-400) X10^3/uL Neut % (Auto) 35.3 L (50-75) % Lymph % (Auto) 60.2 H (25-40) % [place] % (Auto) 3.5 (3-14) % Eos % (Auto) 0.3 L (2-4) % Baso % (Auto) 0.7 (0-2) % Neut # (Auto) 79319 H (0070-7113) /uL Lymph # (Auto) 77546 H (8022-5210) /uL [place] # (Auto) 1000 H (0-900) /uL Eos # (Auto) 100 (0-450) /uL Baso # (Auto) 200 H (0-100) /uL Smudge Cells 2+ H WBC Morphology Comment Note RBC Morphology Normal morphology APTT (26.4-36.2) SECONDS Sodium 141 (137-145) mmol/L Potassium 4.2 (3.4-5.1) mmol/L Chloride 108 H (98-107) mmol/L Carbon Dioxide 25 (22-32) mmol/L BUN 19 (9-20) mg/dL Creatinine 1.13 (0.66-1.25) mg/dL Estimated GFR > 60 (>60) mL/min BUN/Creatinine Ratio 16.8 (6-22) Glucose 115 H (80-110) mg/dL Lactate 1.0 (0.7-2.1) mmol/L Calcium 9.1 (8.4-10.2) mg/dL Total Bilirubin 0.7 (0.2-1.3) mg/dL AST 27 (17-59) IU/L ALT 27 (<50) IU/L Alkaline Phosphatase 105 (38-126) U/L Total Creatine Kinase (55-170) U/L CK-MB (CK-2) CK-MB (CK-2) Rel Index Troponin I (0.01-0.034) ng/mL NT-Pro-B Natriuret Pep (<450) pg/mL Total Protein 7.3 (6.3-8.2) g/dL Albumin 4.1 (3.5-5.0) g/dL Globulin 3.2 (1.7-4.1) g/dL Albumin/Globulin Ratio 1.3 (1.0-2.8) Procalcitonin (<0.5) ng/mL Urine Color Urine Appearance Urine pH (4.5-8.0) Ur Specific [place] (1.000-1.035) Urine Protein (Negative) Urine Glucose (UA) (Negative) g/dL Urine Ketones (NEGATIVE) Urine Occult Blood (Negative) Urine Nitrate (Negative) Urine Bilirubin (NEGATIVE) Urine Urobilinogen (0.2) E.U./dL Ur Leukocyte Esterase (NEGATIVE) Urine RBC (0-5/HPF) Urine WBC (0-5/HPF) Ur Squamous Epith Cells (0-5/HPF) Uric Acid Crystals (None) Amorphous Sediment Urine Bacteria (None) Ur Culture Indicated? SARS-CoV-2 (PCR) (Negative) 06/09/22 06/09/22 06/09/22 Range/Units 17:35 17:35 17:35 WBC (4.5-11.0) X10^3/uL RBC (4.5-5.9) X10^6/uL Hgb (13.5-17.5) g/dL Hct (41-53) % MCV (80-100) fL MCH (26-34) PG MCHC (30-36) % RDW (11.6-14.8) % Plt Count (150-400) X10^3/uL Neut % (Auto) (50-75) % Lymph % (Auto) (25-40) % [place] % (Auto) (3-14) % Eos % (Auto) (2-4) % Baso % (Auto) (0-2) % Neut # (Auto) (3901-5029) /uL Lymph # (Auto) (5030-8053) /uL [place] # (Auto) (0-900) /uL Eos # (Auto) (0-450) /uL Baso # (Auto) (0-100) /uL Smudge Cells WBC Morphology Comment RBC Morphology APTT 30 (26.4-36.2) SECONDS Sodium (137-145) mmol/L Potassium (3.4-5.1) mmol/L Chloride (98-107) mmol/L Carbon Dioxide (22-32) mmol/L BUN (9-20) mg/dL Creatinine (0.66-1.25) mg/dL Estimated GFR (>60) mL/min BUN/Creatinine Ratio (6-22) Glucose (80-110) mg/dL Lactate (0.7-2.1) mmol/L Calcium (8.4-10.2) mg/dL Total Bilirubin (0.2-1.3) mg/dL AST (17-59) IU/L ALT (<50) IU/L Alkaline Phosphatase (38-126) U/L Total Creatine Kinase 61 (55-170) U/L CK-MB (CK-2) TNP CK-MB (CK-2) Rel Index TNP Troponin I 0.083 H (0.01-0.034) ng/mL NT-Pro-B Natriuret Pep 2450 H (<450) pg/mL Total Protein (6.3-8.2) g/dL Albumin (3.5-5.0) g/dL Globulin (1.7-4.1) g/dL Albumin/Globulin Ratio (1.0-2.8) Procalcitonin 0.11 (<0.5) ng/mL Urine Color Urine Appearance Urine pH (4.5-8.0) Ur Specific [place] (1.000-1.035) Urine Protein (Negative) Urine Glucose (UA) (Negative) g/dL Urine Ketones (NEGATIVE) Urine Occult Blood (Negative) Urine Nitrate (Negative) Urine Bilirubin (NEGATIVE) Urine Urobilinogen (0.2) E.U./dL Ur Leukocyte Esterase (NEGATIVE) Urine RBC (0-5/HPF) Urine WBC (0-5/HPF) Ur Squamous Epith Cells (0-5/HPF) Uric Acid Crystals (None) Amorphous Sediment Urine Bacteria (None) Ur Culture Indicated? SARS-CoV-2 (PCR) (Negative) 06/09/22 06/09/22 Range/Units 17:45 18:55 WBC (4.5-11.0) X10^3/uL RBC (4.5-5.9) X10^6/uL Hgb (13.5-17.5) g/dL Hct (41-53) % MCV (80-100) fL MCH (26-34) PG MCHC (30-36) % RDW (11.6-14.8) % Plt Count (150-400) X10^3/uL Neut % (Auto) (50-75) % Lymph % (Auto) (25-40) % [place] % (Auto) (3-14) % Eos % (Auto) (2-4) % Baso % (Auto) (0-2) % Neut # (Auto) (4558-3627) /uL Lymph # (Auto) (1242-3297) /uL [place] # (Auto) (0-900) /uL Eos # (Auto) (0-450) /uL Baso # (Auto) (0-100) /uL Smudge Cells WBC Morphology Comment RBC Morphology APTT (26.4-36.2) SECONDS Sodium (137-145) mmol/L Potassium (3.4-5.1) mmol/L Chloride (98-107) mmol/L Carbon Dioxide (22-32) mmol/L BUN (9-20) mg/dL Creatinine (0.66-1.25) mg/dL Estimated GFR (>60) mL/min BUN/Creatinine Ratio (6-22) Glucose (80-110) mg/dL Lactate (0.7-2.1) mmol/L Calcium (8.4-10.2) mg/dL Total Bilirubin (0.2-1.3) mg/dL AST (17-59) IU/L ALT (<50) IU/L Alkaline Phosphatase (38-126) U/L Total Creatine Kinase (55-170) U/L CK-MB (CK-2) CK-MB (CK-2) Rel Index Troponin I (0.01-0.034) ng/mL NT-Pro-B Natriuret Pep (<450) pg/mL Total Protein (6.3-8.2) g/dL Albumin (3.5-5.0) g/dL Globulin (1.7-4.1) g/dL Albumin/Globulin Ratio (1.0-2.8) Procalcitonin (<0.5) ng/mL Urine Color Yellow Urine Appearance Clear Urine pH 5.0 (4.5-8.0) Ur Specific [place] 1.015 (1.000-1.035) Urine Protein Trace H (Negative) Urine Glucose (UA) Negative (Negative) g/dL Urine Ketones 1+ H (NEGATIVE) Urine Occult Blood Trace-intact (Negative) Urine Nitrate Negative (Negative) Urine Bilirubin Negative (NEGATIVE) Urine Urobilinogen 0.2 (0.2) E.U./dL Ur Leukocyte Esterase Negative (NEGATIVE) Urine RBC 5-10/hpf H (0-5/HPF) Urine WBC None seen (0-5/HPF) Ur Squamous Epith Cells 5-10 /hpf H (0-5/HPF) Uric Acid Crystals Moderate H (None) Amorphous Sediment 2+ Urine Bacteria Few (2-10) H (None) Ur Culture Indicated? Cult not indicated SARS-CoV-2 (PCR) Negative (Negative) Imaging Data Chest x-ray: Radiologist's Impression: FINDINGS:? ? Surgical changes and devices:? None.? ? Lungs and pleura:? Lungs are clear.? No pleural effusions or pneumothorax.? The lungs are hyperexpanded, with flattening of the hemidiaphragms seen. ? Mediastinum:? The cardiac contours are within normal limits. The aorta demonstrates calcification and tortuosity. ? Bones and chest wall:? No suspicious bony abnormalities.? Age-appropriate bony degenerative changes are seen. ? Soft tissues appear unremarkable.? ? ? IMPRESSION:? ? Hyperexpanded lungs, without an acute cardiopulmonary process identified. ? ? Dictated by: Bartolo Awan M.D. on 06/09/2022 at 17:05 ? ? MRI Lumbar spine: My Impression: Outpatient order that was done today. He was short of breath while giving with MRI and came to the emergency room department after scan due to the dyspnea. Radiologist's Impression: FINDINGS:? Image quality:? Excellent.? ? Alignment and Curvature:? 5 mm retrolisthesis of L1 on L2.? 4 mm retrolisthesis of L5 on S1. ? Bone Marrow:? Marrow is of normal overall signal.? No acute vertebral body compression fractures.? ? Spinal Cord:? Conus medullaris terminates at the T12 level.? Visualized cord demonstrates normal signal and size.? ? Paraspinous Soft Tissues:? No paravertebral masses.? ? T12-L1:? Mild disc bulge. No canal stenosis or foraminal stenosis. ? L1-L2:? Retrolisthesis of L1 on L2.? Facet hypertrophy.? Mild canal stenosis.? Moderate bilateral foraminal narrowing with mild flattening deformity on the exiting bilateral L1 nerve roots. ? L2-L3:? Disc bulge.? Facet hypertrophy.? Mild canal stenosis.? [id number] bilateral foraminal narrowing. ? L3-L4:? Disc bulge.? Facet hypertrophy.? Mild canal stenosis.? Mild to moderate bilateral foraminal narrowing. ? L4-L5:? Disc bulge.? Facet hypertrophy.? Mild canal stenosis.? In the left lateral recess, below the exiting left L4 nerve root there is either a small free disc fragment or a left facet joint cyst.? It measures approximately 7 x 6 x 6 mm.? It impinges on the left L5 nerve root in the left lateral recess.? Reference image 11/2 and image 25/5.? There is [id number] bilateral foraminal narrowing.? ? L5-S1:? Retrolisthesis of L5 on S1 associated with diffuse posterior disc plus osteophyte.? Disc material abuts the left S1 nerve root in the left lateral recess.? No central canal stenosis.? [id number] bilateral foraminal narrowing. ? ? IMPRESSION:? ? 1. Multilevel facet arthropathy. ? 2. There is mild central canal stenosis at L1-L2, L2-L3, and L3-L4 and L4-L5. ? 3. At L4-L5, there is either a small free disc fragment in the left lateral recess or a left facet joint cyst.? This impinges on the left L5 nerve root in the left lateral recess. ? 4. Multilevel foraminal narrowing as described above.? Dictated by: Liang Whiteside M.D. on 06/09/2022 at 15:28 ? ? CT scan - chest: Radiologist's Impression: FINDINGS:? Image quality:? Excellent.? ? Pulmonary arteries:? There is a saddle pulmonary embolus.? It extends throughout the course of both the right and left main pulmonary arteries.? There is clot which is subtotally occluding the right upper lobe pulmonary artery.? There is large clot in the inter lobar pulmonary artery on the right which is near occlusive at this point, and is occlusive at multiple basal segments of the right lower lobe pulmonary artery.? There is near occlusive clot in the left upper lobe pulmonary artery.? There is also superior segment left lower lobe pulmonary artery clot. ? Lungs and pleura:? Lungs are clear.? There is moderate to severe centrilobular emphysema. ?There is an ill-defined nodular density in the inferior lingula of the left lung which has increased in size compared to the previous study from 01/23/2022, measuring 1.1 x 1.6 cm. Possible atelectasis versus small growing malignancy.? No pleural effusions or pneumothorax.? Central and peripheral airways are patent.? ? Mediastinum:? There is reversal of the normal RV LV ratio consistent with right heart strain.? Overall, there is borderline cardiomegaly.? There is a borderline enlarged right infrahilar pulmonary lymph node measuring 1.4 cm. Thoracic aorta is normal in caliber and enhancement.? Esophagus is normal in caliber, without hiatal hernia.? ? Bones and chest wall:? No suspicious bony lesions.? Ribs and thoracic spine appear intact throughout.? Thyroid gland is unremarkable.? No axillary or supraclavicular adenopathy.? ? Abdomen:? Visualized upper abdominal solid organs appear normal in the early arterial phase of enhancement.? ? IMPRESSION:? ? 1. Extensive pulmonary emboli.? Saddle pulmonary embolus with occlusive or near occlusive clot in multiple pulmonary arterial structures bilaterally. ? 2. Reversal of the normal RV /LV ratio, now greater than 1, indicating right heart strain. ? 3. Moderate to severe centrilobular emphysema. ? 4. Question inferior lingula atelectasis versus growing small pulmonary malignancy.? ? Comment: Findings were discussed with Dr. Yuen at the time of study dictation. ? ? Dictated by: Liang Whiteside M.D. on 06/09/2022 at 19:12 ? ? CT scan - abdomen/pelvis: Radiologist's Impression: FINDINGS:? Image quality:? Excellent.? ? Lung bases:? Bibasilar pulmonary emboli.? This is barely visualized on the current study. ?However, there is extensive pulmonary emboli and saddle embolus on today's CT angiogram of the chest. Heart:? Reversal of RV LV ratio. ? ABDOMEN: Liver:? Unremarkable.? ? Gallbladder:? Unremarkable.? ? Biliary ducts:? Unremarkable.? ? Pancreas:? Unremarkable.? ? Spleen:? Unremarkable.? ? Adrenal Glands:? Unremarkable.? ? Kidneys and Ureters:? Unremarkable.? ? ? Stomach and Bowel:? Stomach, small bowel loops, and colon are unremarkable.? Peritoneum:? No abnormal intraperitoneal fluid.? No free air.? ? Ventral Wall: ? No hernias.? Abdominal Nodes:? No retroperitoneal or mesenteric adenopathy by size criteria.? Vessels:? Aorta and inferior vena cava are normal in size.? ? PELVIS: Pelvic Organs:? Unremarkable.? ? Bladder:? Unremarkable.? Enlarged prostate.? ? Pelvic Nodes: No enlarged lymph nodes.? Miscellaneous: No hernias are seen. ? ? ? Bones:? Lumbar degenerative change.? No lytic or blastic bony lesions.? No compression fractures. ? ? IMPRESSION:? ? 1. On today's CTA chest, there are extensive pulmonary emboli with a saddle pulmonary embolus.? There is reversal of the RV LV ratio.? This is known by the ER doc at this point. ? 2. No evidence acute abdominal process.? ? ? Dictated by: Liang Whiteside M.D. on 06/09/2022 at 19:22 ? ? ECG Data Interpretation: Sinus rhythm at a rate of 95 Frequent PVCs, 3-1 bigeminy Right bundle branch block and no acute ischemic changes MDM Narrative Medical decision making narrative: 76-year-old gentleman with sciatic type pain with an MRI ordered today that does show a small free disc fragment in the left lateral recess or left facet joint cyst at the L4-5 level that is impinging on the L5 nerve root that is consistent with his symptoms. While at MRI was complaining of dyspnea and was seen in the emergency department. He is subsequently found to have a large saddle pulmonary emboli with near occlusive clot in the middle pulmonary arterial structures bilaterally. Does have reversal of the normal RV/LV ratio suggesting right heart strain additionally with inferior lingula atelectasis appreciated question of a pulmonary malignancy is also entertained. According to Dr. Whiteside, radiologist the location and volume of clot would likely be amenable to interventional thrombectomy. He is started on heparin. White count is significantly elevated at 29.7 with elevated lymphocytes. Similar finding was in December of this year. Lab work was reviewed with Dr. Spring oncology. Most likely explanation is developing CLL rather than acute infection or any type of acute leukemia. Will need additional workup as an outpatient. Because of the elevated white count shortness of breath and uncertain initial etiologies, CT scans of the chest abdomen and pelvis were done looking for infectious etiology. Chest shows the pulmonary embolisms and possible lingular malignancy. Abdomen shows no significant pathology. 915 patient is re-examined and all of his findings reviewed with him. He is hemodynamically stable, having some mild right-sided pleuritic chest pain with deep breathing. Able to speak in full sentences. He is interested in pursuing possibility of thrombectomy if indicated. He is tolerating heparin currently. He is aware of the possibility of pulmonary malignancy, possibility of CLL and did let him know that he had actual physiologic findings to explain the neuropathy that he had been experiencing in the right leg. He also notes his is on hospice currently minimally eating and has days to weeks at most. He would like to proceed with whatever treatment is most expedient and gets him home with the least symptoms so that he can be available for his at the end of her life and then will move forward with dealing with some of the other concerns identified today as well. Will begin calling to see if there any facilities that have spacing capacity for pulmonary embolism thrombectomy. [address] Del Toro, air and missile defense crewmember [facility]. He suggested ED ED transfer and he will take patient to equipment operator/laborer for thrombectomy. All findings were reviewed with him including the possible new lingular cancer diagnosis new CLL diagnosis. Care is reviewed with Dr. Elver Larson in the emergency department. Accepts ED- ED transfer. Care is reviewed with patient who is amenable to transfer. ALS transfer will be arranged [address] Del Toro updated. <Michelle Yuen MD - Last Filed: 06/10/22 04:32> Critical Care Time Critical Care Time: Yes Total Critical Care Time: 34 Attestation: Critical care time is separate from other billable procedures. There is a high probability of a significant, sudden or life-threatening deterioration that requires my full and direct attention, intervention and personal management. This critical care time includes consultation with family and other consulting doctors, review of records, and interpretation of data from labs, EKGs and imaging as well as managements of large pulmonary embolism with required cord nation of care. Discharge Plan Departure Patient Disposition: [facility] Clinical Impression: Acute saddle pulmonary embolism, Paresthesia of right lower extremity, Chronic lymphocytic leukemia, Mass of lingula of lung Prescriptions: No Action pravastatin 20 mg tablet 20 mg PO BEDTIME Qty: 90 3RF tizanidine 4 mg tablet 4 mg PO Q8H PRN (Reason: muscle spasticity) Qty: 30 5RF Referrals: Ron Salmeron MD [Primary Care Provider] -
[2022-06-09 18:06] LABS: Basophils Absolute Auto 200 /uL (0-100); Basophils Percent Auto 0.7 % (0-2); Eosinophils Absolute Auto 100 /uL (0-450); Eosinophils Percent Auto 0.3 % (2-4); Hematocrit 39.5 % (41-53); Hemoglobin 13.5 g/dL (13.5-17.5); Lymphocytes Absolute Auto 17900 /uL (1100-4500); Lymphocytes Percent Auto 60.2 % (25-40); Mean Corpuscular HGB Conc 34.1 % (30-36); Mean Corpuscular Hemoglobin 31.2 PG (26-34); Mean Corpuscular Volume 91.7 fL (80-100); Monocytes Absolute Auto 1000 /uL (0-900); Monocytes Percent Auto 3.5 % (3-14); Neutrophils Absolute Auto 10500 /uL (1500-7000); Neutrophils Percent Auto 35.3 % (50-75); Platelet Count 184 X10^3/uL (150-400); Red Blood Cell Count 4.31 X10^6/uL (4.5-5.9); Red Cell Distribution Width 14.2 % (11.6-14.8); White Blood Cell Count 29.7 X10^3/uL (4.5-11.0)
[2022-06-09 18:08] LABS: NT-proBNP (BNP-Adult 18+) 2450 pg/mL (<450)
[2022-06-09 18:09] LABS: Add Manual Diff / Slide Review SLIDE REVIEW; RBC Morphology Normal Morphology; Smudge Cells 2+
[2022-06-09 18:11] LABS: WBC Morphology Comment NOTE
--- NOTE | 2022-06-09 18:18 | DI.CT.S_ITS ---
PROCEDURE: CT ABDOMEN PELVIS W CON INDICATIONS: high wbc TECHNIQUE: After the administration of intravenous contrast, axial sections acquired from the lung bases to the pubic symphysis. Coronal and sagittal reformats were performed. For radiation dose reduction, the following was used: automated exposure control, adjustment of mA and/or kV according to patient size. COMPARISON: [facility], CT, CT ANGIO CHEST PE PROTOCOL, 06/09/2022, 18:41. [facility], CT, CT ABDOMEN PELVIS W CON, 01/23/2022, 19:34. FINDINGS: Image quality: Excellent. Lung bases: Bibasilar pulmonary emboli. This is barely visualized on the current study. However, there is extensive pulmonary emboli and saddle embolus on today's CT angiogram of the chest. Heart: Reversal of RV LV ratio. ABDOMEN: Liver: Unremarkable. Gallbladder: Unremarkable. Biliary ducts: Unremarkable. Pancreas: Unremarkable. Spleen: Unremarkable. Adrenal Glands: Unremarkable. Kidneys and Ureters: Unremarkable. Stomach and Bowel: Stomach, small bowel loops, and colon are unremarkable. Peritoneum: No abnormal intraperitoneal fluid. No free air. Ventral Wall: No hernias. Abdominal Nodes: No retroperitoneal or mesenteric adenopathy by size criteria. Vessels: Aorta and inferior vena cava are normal in size. PELVIS: Pelvic Organs: Unremarkable. Bladder: Unremarkable. Enlarged prostate. Pelvic Nodes: No enlarged lymph nodes. Miscellaneous: No hernias are seen. Bones: Lumbar degenerative change. No lytic or blastic bony lesions. No compression fractures. IMPRESSION: 1. On today's CTA chest, there are extensive pulmonary emboli with a saddle pulmonary embolus. There is reversal of the RV LV ratio. This is known by the ER doc at this point. 2. No evidence acute abdominal process. Dictated by: Liang Whiteside M.D. on 06/09/2022 at 19:22 Approved by: Liang Whiteside M.D. on 06/09/2022 at 19:26
--- NOTE | 2022-06-09 18:18 | DI.CT.S_ITS ---
PROCEDURE: CT ANGIO CHEST PE PROTOCOL INDICATIONS: sob TECHNIQUE: After the administration of intravenous contrast, 2 mm thick sections acquired from the pulmonary apices to the posterior costophrenic angles. 3-dimensional maximum intensity projection (MIP) coronal and sagittal reformats were then acquired through the thorax. For radiation dose reduction, the following was used: automated exposure control, adjustment of mA and/or kV according to patient size. COMPARISON: [facility], CT, CT ABDOMEN PELVIS W CON, 01/23/2022, 19:34. [facility], CT, CT ABDOMEN PELVIS W CON, 06/09/2022, 18:41. FINDINGS: Image quality: Excellent. Pulmonary arteries: There is a saddle pulmonary embolus. It extends throughout the course of both the right and left main pulmonary arteries. There is clot which is subtotally occluding the right upper lobe pulmonary artery. There is large clot in the inter lobar pulmonary artery on the right which is near occlusive at this point, and is occlusive at multiple basal segments of the right lower lobe pulmonary artery. There is near occlusive clot in the left upper lobe pulmonary artery. There is also superior segment left lower lobe pulmonary artery clot. Lungs and pleura: Lungs are clear. There is moderate to severe centrilobular emphysema. There is an ill-defined nodular density in the inferior lingula of the left lung which has increased in size compared to the previous study from 01/23/2022, measuring 1.1 x 1.6 cm. Possible atelectasis versus small growing malignancy. No pleural effusions or pneumothorax. Central and peripheral airways are patent. Mediastinum: There is reversal of the normal RV LV ratio consistent with right heart strain. Overall, there is borderline cardiomegaly. There is a borderline enlarged right infrahilar pulmonary lymph node measuring 1.4 cm. Thoracic aorta is normal in caliber and enhancement. Esophagus is normal in caliber, without hiatal hernia. Bones and chest wall: No suspicious bony lesions. Ribs and thoracic spine appear intact throughout. Thyroid gland is unremarkable. No axillary or supraclavicular adenopathy. Abdomen: Visualized upper abdominal solid organs appear normal in the early arterial phase of enhancement. IMPRESSION: 1. Extensive pulmonary emboli. Saddle pulmonary embolus with occlusive or near occlusive clot in multiple pulmonary arterial structures bilaterally. 2. Reversal of the normal RV /LV ratio, now greater than 1, indicating right heart strain. 3. Moderate to severe centrilobular emphysema. 4. Question inferior lingula atelectasis versus growing small pulmonary malignancy. Comment: Findings were discussed with Dr. Yuen at the time of study dictation. Dictated by: Liang Whiteside M.D. on 06/09/2022 at 19:12 Approved by: Liang Whiteside M.D. on 06/09/2022 at 19:22
[2022-06-09 19:02] LABS: COVID19 -Nasal RAPID Negative (Negative)
[2022-06-09 19:10] LABS: Creatine Kinase 61 U/L (55-170)
[2022-06-09 19:22] LABS: Troponin I 0.083 ng/mL (0.01-0.034)
[2022-06-09 19:26] LABS: Procalcitonin 0.11 ng/mL (<0.5)
[2022-06-09 19:33] LABS: Appearance Urine UA CLEAR; Bilirubin Urine UA NEGATIVE (NEGATIVE); Color Urine UA YELLOW; Glucose Urine UA NEGATIVE (Negative); Ketones Urine UA 1+ (NEGATIVE); Leukocyte Esterase Urine UA NEGATIVE (NEGATIVE); Nitrite Urine UA NEGATIVE (Negative); Occult Blood Urine UA TRACE-INTACT (Negative); Protein Urine UA TRACE (Negative); Specific Gravity Urine UA 1.015 (1.000-1.035); Urobilinogen Urine UA 0.2 E.U./dL (0.2)
[2022-06-09] MEDS: HEPARIN 5,000 UNIT/ML VIAL 7500 UNIT IV (19:40)
[2022-06-09] MEDS: HEPARIN DRIP 25,000 UNIT/500 ML IV.SOLN 24 UNIT IV (19:41)
[2022-06-09 19:43] LABS: RBC Urine 5-10/HPF (0-5/HPF); Uric Acid Crystals Urine Moderate; WBC Urine None Seen (0-5/HPF)
[2022-06-09 19:44] LABS: Amorphous Sediment Urine 2+; Bacteria Urine Few (2-10); Culture Indicated Urine Cult Not Indicated; Squamous Epithelial Cell Urine 5-10 /HPF (0-5/HPF)
[2022-06-09 19:47] LABS: PTT Partial Thromboplastin Tim 30 SECONDS (26.4-36.2)
[2022-06-09] MEDS: HYDROMORPHONE 0.5 MG INJ IV (21:32)
--- NOTE | 2022-06-09 22:07 | PC.NURSE ---
Handoff report called to ольга Mar RN at [facility]. All questions answered, ER to ER transfer to take place.
== END 2022-06-09 22:52 | disposition short-term general hospital (02) ==
PROVIDERS: Emergency Medicine; Emergency Provider Emergency Medicine; PCP Student in an Organized Health Care Education/Training Program
DX: I26.92 Saddle embolus of pulmonary artery without acute cor pulmonale (principal); R20.2 Paresthesia of skin; C91.10 Chronic lymphocytic leukemia of B-cell type not having achieved remission; R91.8 Other nonspecific abnormal finding of lung field; R06.02 Shortness of breath; Z20.822 Contact with and (suspected) exposure to COVID-19; M47.816 Spondylosis without myelopathy or radiculopathy, lumbar region; M48.061 Spinal stenosis, lumbar region without neurogenic claudication; M54.42 Lumbago with sciatica, left side; G12.9 Spinal muscular atrophy, unspecified
CPT/HCPCS: 36415; 71046; 71275; 72148; 74177; 80053; 81001; 82550; 83605; 83880; 84145; 84484; 85025; 85730; 87040; 87635; 93005; 93010; 96374; 96375; 99285; 99291; C9803; J1170; J1644; Q9967

== ENCOUNTER → 2023-03-24 08:20 | Outpatient (CLI) | payer MEDICARE, SELFPAY ==
[2023-03-24 09:06] LABS: Appearance Urine UA CLEAR; Bilirubin Urine UA NEGATIVE (NEGATIVE); Color Urine UA YELLOW; Glucose Urine UA NEGATIVE (Negative); Ketones Urine UA NEGATIVE (NEGATIVE); Leukocyte Esterase Urine UA NEGATIVE (NEGATIVE); Nitrite Urine UA NEGATIVE (Negative); Occult Blood Urine UA NEGATIVE (Negative); Protein Urine UA NEGATIVE (Negative); Specific Gravity Urine UA >=1.030 (1.000-1.035); Urobilinogen Urine UA 0.2 E.U./dL (0.2); pH Urine UA 5.5 (4.5-8.0)
[2023-03-24 09:14] LABS: Alanine Aminotransferase 20 IU/L (<50); Albumin 4.1 g/dL (3.5-5.0); Albumin Globulin Ratio 1.6 (1.0-2.8); Alkaline Phosphatase 94 U/L (38-126); Aspartate Aminotransferase 20 IU/L (17-59); BUN Creatinine Ratio 21.6 (6-22); Bilirubin Total 0.4 mg/dL (0.2-1.3); Blood Urea Nitrogen 21 mg/dL (9-20); Calcium 9.2 mg/dL (8.4-10.2); Carbon Dioxide 26 mmol/L (22-32); Chloride 107 mmol/L (98-107); Cholesterol 147 mg/dL (140-199); Estimated Glomerular Filt Rate > 60 mL/min (>60); Globulin 2.5 g/dL (1.7-4.1); Glucose 103 mg/dL (80-110); HDL Cholesterol 45 mg/dL (40-60); HEMOLYSIS < 15 (0-50); LDL Cholesterol Calculated 79 mg/dL (<100); Potassium 4.4 mmol/L (3.4-5.1); Sodium 141 mmol/L (137-145); Total Protein 6.6 g/dL (6.3-8.2); Triglycerides 114 mg/dL (35-150)
[2023-03-24 09:24] LABS: Bacteria Urine Occasional (0-1); RBC Urine None Seen (0-5/HPF); Squamous Epithelial Cell Urine 0-1 /HPF (0-5/HPF); WBC Urine 0-1/HPF (0-5/HPF)
[2023-03-24 09:25] LABS: Culture Indicated Urine Cult Not Indicated
[2023-03-24 09:30] LABS: Hemoglobin 12.5 g/dL (13.5-17.5); Mean Corpuscular HGB Conc 32.9 % (30-36); Mean Corpuscular Hemoglobin 28.4 PG (26-34); Mean Corpuscular Volume 86.3 fL (80-100); Platelet Count 192 X10^3/uL (150-400); Red Cell Distribution Width 16.1 % (11.6-14.8); White Blood Cell Count 18.1 X10^3/uL (4.5-11.0)
[2023-03-24 09:34] LABS: Add Manual Diff / Slide Review YES
[2023-03-24 09:42] LABS: TSH w/ Reflex to FT4 1.06 uIU/mL (0.47-4.68)
[2023-03-24 09:44] LABS: Prostate Specific Antigen Scrn 0.342 ng/mL (0.1-4.0)
[2023-03-24 12:45] LABS: Anisocytosis 1+; Neutrophils Absolute Manual 6335 /uL (3000-5900); Smudge Cells 2+; Total Cells Counted 100
== END ==
PROVIDERS: PCP Student in an Organized Health Care Education/Training Program; Referring Provider Pediatrics; Visit Provider Pediatrics
DX: C91.10 Chronic lymphocytic leukemia of B-cell type not having achieved remission (principal); Z12.5 Encounter for screening for malignant neoplasm of prostate; M48.061 Spinal stenosis, lumbar region without neurogenic claudication; N40.0 Benign prostatic hyperplasia without lower urinary tract symptoms; G62.9 Polyneuropathy, unspecified; M54.10 Radiculopathy, site unspecified; Z86.39 Personal history of other endocrine, nutritional and metabolic disease
CPT/HCPCS: 36415; 80053; 80061; 81001; 84443; 85007; 85025; G0103

== ENCOUNTER 2023-09-14 08:11 | Emergency (ER) | payer MEDICARE, SELFPAY ==
--- NOTE | 2023-09-14 08:12 | DI.RAD.S_ITS ---
PROCEDURE: XR CHEST 1V INDICATIONS: Blood-tinged sputum with the cough TECHNIQUE: One view of the chest was acquired. COMPARISON: [facility], [place], XR CHEST 2V, 06/09/2022, 17:49. [facility], [place], CHEST 2 VIEW, 10/09/2017, 10:20. FINDINGS: Surgical changes and devices: None. Lungs and pleura: Lungs are clear. No pleural effusions or pneumothorax. Mediastinum: Mediastinal contours appear normal. Heart size is normal. Bones and chest wall: No suspicious bony lesions. Overlying soft tissues appear unremarkable. IMPRESSION: Portable chest within normal limits for age. Dictated by: Ely Meng M.D. on 09/14/2023 at 8:51 Approved by: Ely Meng M.D. on 09/14/2023 at 8:54
--- NOTE | 2023-09-14 08:13 | ED_ITS ---
HPI - General Adult General Chief complaint: Upper Respiratory Symptoms Stated complaint: blood in phlegm when coughing T-1 Time Seen by Provider: 09/14/23 08:12 Source: patient Mode of arrival: Ambulatory Limitations: no limitations History of Present Illness HPI narrative: Patient is a 78-year-old male. History of CLL. Is on Eliquis. 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 Does have a smoking history. Has had pulmonary embolisms in the past. He states that last evening he coughed and there was some blood-tinged in the phlegm. He is having no changes in his respiratory status. No chest pain. No fevers. No sore throat. Related Data Home Medications Medication Instructions Recorded Confirmed aspirin 81 mg tablet,delayed 81 mg PO DAILY 06/21/22 09/13/23 release albuterol sulfate 90 mcg/actuation 1 puff inhalation lung issues 10/09/22 09/13/23 aerosol inhaler (Ventolin HFA) rivaroxaban 20 mg tablet (Xarelto) 20 mg PO 10/09/22 09/13/23 gabapentin 300 mg capsule 300 mg PO DAILY 05/08/23 09/13/23 Previous Rx's Medication Instructions Recorded pravastatin 20 mg tablet 20 mg PO BEDTIME #90 tabs 01/11/23 umeclidinium 62.5 mcg-vilanterol 1 inh inhalation DAILY COPD #30 ea 07/19/23 25 mcg/actuation powdr for inhalation (Anoro Ellipta) bupropion HCl 150 mg 24 hr tablet, 150 mg PO QAM #30 tabs 09/13/23 extended release Allergies Allergy/AdvReac Type Severity Reaction Status Date / Time No Known Drug Allergies Allergy Verified 09/14/23 08:19 Review of Systems Constitutional Constitutional: Reports system reviewed and no additional complaints, except as documented ENT Ears, Nose, Mouth, and Throat: Reports system reviewed and no additional complaints, except as documented Cardiovascular Cardiovascular: Reports system reviewed and no additional complaints, except as documented Respiratory Respiratory: Reports system reviewed and no additional complaints, except as documented Integumentary/Breasts Skin/Breast: Reports system reviewed and no additional complaints, except as documented Hematologic/Lymphatic On Anticoagulants: Yes Patient History Medical History Grief reaction Immunization counseling Hyperlipidemia Pure hypercholesterolemia Melanoma Prostate CA Surgical History S/P right colectomy Social History Smoking Status: Former smoker alcohol intake: former Smoking Status: Former smoker alcohol intake frequency: other Substance Use Type: marijuana Exam Initial Vital Signs Initial Vital Signs: Vital Signs Temperature 97.2 F L 09/14/23 08:14 Pulse Rate 79 09/14/23 08:14 Respiratory Rate 18 09/14/23 08:14 Blood Pressure 156/75 H 09/14/23 08:14 Pulse Oximetry 96 09/14/23 08:14 Oxygen Delivery Method Room Air 09/14/23 08:14 HENMT Head: normal to inspection and normocephalic Throat: posterior oropharynx normal Resp Effort & Inspection: normal respiratory effort Auscultation: clear to auscultation bilaterally Cardio Rate: regular rate Rhythm: regular rhythm Skin General: no rashes or lesions noted Neuro General: patient alert and patient awake Course Orders Ordered: ED Orders 09/14/23 08:12 XR chest 1V Stat Vital Signs Vital signs: Vital Signs - 8 hr 09/14/23 08:14 Temperature 97.2 F L Pulse Rate 79 Respiratory Rate 18 Blood Pressure 156/75 H Pulse Oximetry 96 Oxygen Delivery Method Room Air Medical Decision Making Imaging Data Chest x-ray: Radiologist's Impression: PROCEDURE: XR CHEST 1V INDICATIONS: Blood-tinged sputum with the cough TECHNIQUE: One view of the chest was acquired. COMPARISON: [facility], XR CHEST 2V, 06/09/2022, 17:49. [facility], CHEST 2 VIEW, 10/09/2017, 10:20. FINDINGS: Surgical changes and devices: None. Lungs and pleura: Lungs are clear. No pleural effusions or pneumothorax. Mediastinum: Mediastinal contours appear normal. Heart size is normal. Bones and chest wall: No suspicious bony lesions. Overlying soft tissues appear unremarkable. IMPRESSION: Portable chest within normal limits for age. MDM Narrative Medical decision making narrative: Patient had 1 episode last evening. No respiratory distress. Not tachypneic. Not hypoxic. Clear lungs. Chest x-ray is unremarkable. He does have history of PE however he is on Xarelto. He has been taking Xarelto without missing any doses. He does not have any chest pain. No shortness of breath today. I have low suspicion that this is recurrence of the PE because he is on anticoagulation. Low suspicion that this is a COPD exacerbation. He is not clinically in heart failure. Will discharge patient home without further workup here in the ER. Will have him continue to take all of his medications as directed. He was given strict return precautions. He expressed understanding and agreement with plan. Discharge Plan Departure Patient Disposition: Home Clinical Impression: Cough Instructions: Cough Activity Restrictions/Additional Instructions: Recommend that you continue to take all of your medications as directed. Keep all of your scheduled medical appointments. Return to the emergency department for new symptoms to include continued or worsening bleeding with coughing, shortness of breath, fevers or any other worsening symptoms. Prescriptions: No Action bupropion HCl 150 mg tablet extended release 24 hr 150 mg PO QAM Qty: 30 3RF pravastatin 20 mg tablet 20 mg PO BEDTIME Qty: 90 2RF Anoro Ellipta 62.5-25 mcg/actuation blister with device 1 inh inhalation DAILY Qty: 30 11RF aspirin 81 mg tablet,delayed release (DR/EC) 81 mg PO DAILY albuterol sulfate [Ventolin HFA] 90 mcg/actuation HFA aerosol inhaler 1 puff inhalation Xarelto 20 mg tablet 20 mg PO gabapentin 300 mg capsule 300 mg PO DAILY Referrals: Waldemar Romero MD [Primary Care Provider] - Stand Alone Forms: Patient Portal/API
[2023-09-14 08:14] VITALS: BP 156/75; PULSE 79; RESP 18; TEMP 36.2; O2SAT 96; BMI 29.0
== END 2023-09-14 08:55 | disposition home or self-care (01) ==
PROVIDERS: Emergency Provider Emergency Medicine; PCP Family Medicine
DX: R05.9 Cough, unspecified (principal)
CPT/HCPCS: 71045; 99281; 99283

== ENCOUNTER → 2024-05-15 09:47 | Outpatient (CLI) | payer MEDICARE, SELFPAY ==
--- NOTE | 2024-05-15 09:49 | DI.CT.S_ITS ---
PROCEDURE: CT CHEST WO CON INDICATIONS: RLL pulmonary nodule TECHNIQUE: Noncontrast 5 mm thick sections acquired from the pulmonary apices to the posterior costophrenic angles. 1 mm lung window, 5 mm thick coronal and sagittal and 7 mm axial MIP reformats were then acquired. For radiation dose reduction, the following was used: automated exposure control, adjustment of mA and/or kV according to patient size. COMPARISON: [facility], CT, CT ANGIO CHEST PE PROTOCOL, 06/09/2022, 18:41. [facility], CT, CT CHEST WITHOUT CONTRAST, 04/13/2023, 7:01. FINDINGS: Image quality: Diagnostic. Lower Neck: No enlarged lymph nodes. Thyroid: No thyroid nodules which require sonographic follow up, per consensus guidelines. Axillae: No enlarged lymph nodes. Chest Wall: Unremarkable. Bones: No acute fractures. No aggressive appearing lytic or blastic osseous lesions. Mild multilevel degenerative changes of the spine. Lungs and Pleura: No pneumothorax or pleural effusions. Left lingual and lower lobe linear atelectasis/scar. Compared to CT chest dated May 13, 2023, no new or enlarging solid pulmonary nodules. A few scattered solid pulmonary nodules measuring up to 7 mm which are stable. For example: - right upper lobe, measures 3 mm (3/86). -right upper lobe, measures 3 mm (3/127). -right lower lobe medial, measures 7 mm (3/220), previously 7 mm (3/221). A few scattered calcified subcentimeter granulomas which are stable. Patent central airways. Severe apical predominant centrilobular and paraseptal emphysema Heart: Heart size is normal. Moderate three vessel coronary calcifications. No pericardial effusion. Thoracic Vessels: The aorta and pulmonary arteries demonstrate normal size. Mild calcification of the thoracic aorta. Mediastinum and [place]: No enlarged lymph nodes. Esophagus: No wall thickening. No hiatal hernia. Upper Abdomen: Visualized upper abdomen solid organs and bowel loops appear normal. Mild calcification of the abdominal aorta. IMPRESSION: 1. Compared to CT chest dated April 13, 2023, no new or enlarging pulmonary nodules or consolidation. Stable right lower lobe solid, noncalcified pulmonary nodule measuring 7 mm. Additional scattered pulmonary nodules and linear atelectasis/scar in the lingula are stable. Given 2 year stability, per Fleischner guidelines, these are benign. If patient meets criteria, consider annual low-dose chest CT. 2. Marked emphysema. 3. Moderate three-vessel coronary calcifications. Dictated by: Briseyda Rodriguez M.D. on 05/15/2024 at 13:55 Approved by: Briseyda Rodriguez M.D. on 05/15/2024 at 21:25
== END ==
LOC: CT 09:48
PROVIDERS: PCP Family Medicine; Referring Provider Internal Medicine; Visit Provider Internal Medicine
DX: J43.2 Centrilobular emphysema (principal); R91.8 Other nonspecific abnormal finding of lung field; R04.2 Hemoptysis; I25.10 Atherosclerotic heart disease of native coronary artery without angina pectoris; I70.0 Atherosclerosis of aorta
CPT/HCPCS: 71250

== ENCOUNTER → 2025-03-18 16:35 | Outpatient (CLI) | payer MEDICARE, SELFPAY ==
--- NOTE | 2025-03-18 16:37 | DI.RAD.S_ITS ---
PROCEDURE: XR CHEST 2V INDICATIONS: URI with mild HECK TECHNIQUE: 2 views of the chest were acquired. COMPARISON: Located Within [facility], CR, XR CHEST 1V, 09/14/2023, 8:35. FINDINGS: Surgical changes and devices: None. Lungs and pleura: Lungs are clear. No pleural effusions or pneumothorax. Mediastinum: Mediastinal contours are normal. Heart size is mildly prominent. Bones and chest wall: No suspicious bony abnormalities. Soft tissues appear unremarkable. IMPRESSION: No acute pulmonary process. Dictated by: Lindsay Botello M.D. on 03/18/2025 at 17:37 Approved by: Lindsay Botello M.D. on 03/18/2025 at 17:38
== END ==
PROVIDERS: PCP Family Medicine; Referring Provider Chiropractor; Visit Provider Chiropractor
DX: R06.09 Other forms of dyspnea (principal)
CPT/HCPCS: 71046

== ENCOUNTER → 2025-04-25 08:29 | Outpatient (CLI) | payer MEDICARE, SELFPAY ==
[2025-04-25 09:37] LABS: Basophils Absolute Auto 100 /uL (0-100); Basophils Percent Auto 0.3 % (0-2); Eosinophils Absolute Auto 200 /uL (0-450); Eosinophils Percent Auto 0.7 % (2-4); Hematocrit 36.5 % (41-53); Hemoglobin 12.3 g/dL (13.5-17.5); Lymphocytes Absolute Auto 15300 /uL (1100-4500); Lymphocytes Percent Auto 71.1 % (25-40); Mean Corpuscular HGB Conc 33.8 % (30-36); Mean Corpuscular Hemoglobin 30.6 PG (26-34); Mean Corpuscular Volume 90.4 fL (80-100); Monocytes Absolute Auto 500 /uL (0-900); Monocytes Percent Auto 2.2 % (3-14); Neutrophils Absolute Auto 5500 /uL (1500-7000); Neutrophils Percent Auto 25.7 % (50-75); Platelet Count 164 X10^3/uL (150-400); Red Blood Cell Count 4.03 X10^6/uL (4.5-5.9); Red Cell Distribution Width 14.8 % (11.6-14.8); White Blood Cell Count 21.5 X10^3/uL (4.5-11.0)
[2025-04-25 09:38] LABS: Alanine Aminotransferase 21 IU/L (<50); Albumin Globulin Ratio 1.7 (1.0-2.8); Alkaline Phosphatase 89 U/L (38-126); Aspartate Aminotransferase 25 IU/L (17-59); Bilirubin Total 0.7 mg/dL (0.2-1.3); Blood Urea Nitrogen 18 mg/dL (9-20); Calcium 9.2 mg/dL (8.4-10.2); Carbon Dioxide 23 mmol/L (22-32); Chloride 109 mmol/L (98-107); Cholesterol 156 mg/dL (140-199); Estimated Glomerular Filt Rate > 60 mL/min (>60); Globulin 2.3 g/dL (1.7-4.1); Glucose 94 mg/dL (70-99); HDL Cholesterol 47 mg/dL (40-60); HEMOLYSIS < 15 (0-50); LDL Cholesterol Calculated 94 mg/dL (<100); Potassium 4.5 mmol/L (3.4-5.1); Sodium 141 mmol/L (137-145); Total Protein 6.3 g/dL (6.3-8.2); Triglycerides 73 mg/dL (35-150)
[2025-04-25 10:14] LABS: Prostate Specific Antigen Scrn 0.239 ng/mL (0.1-4.0)
[2025-04-25 12:48] LABS: Add Manual Diff / Slide Review SLIDE REVIEW
[2025-04-25 12:49] LABS: RBC Morphology Normal Morphology
[2025-04-25 12:50] LABS: Smudge Cells 1+
== END ==
PROVIDERS: PCP Family Medicine; Referring Provider Family Medicine; Visit Provider Family Medicine
DX: Z12.5 Encounter for screening for malignant neoplasm of prostate (principal); C91.10 Chronic lymphocytic leukemia of B-cell type not having achieved remission; E78.5 Hyperlipidemia, unspecified; Z85.46 Personal history of malignant neoplasm of prostate
CPT/HCPCS: 36415; 80053; 80061; 85025; G0103

== ENCOUNTER → 2025-06-03 08:26 | Outpatient (CLI) | payer MEDICARE, SELFPAY ==
--- NOTE | 2025-06-03 08:28 | DI.RAD.S_ITS ---
PROCEDURE: XR LUMBAR SPINE MIN 4V INDICATIONS: BACK PAIN TECHNIQUE: 5 views of the lumbar spine were acquired, including bilateral oblique views. COMPARISON: [facility], , XR LUMBAR SPINE 2-3V, 01/10/2022, 12:44. FINDINGS: Bones: 5 nonrib-bearing vertebrae are present. There is stable bony alignment. No acute vertebral body compression fractures. No suspicious bony lesions. Moderate multilevel lumbar spondylosis with degenerative endplate changes, disc space loss, and endplate osteophyte formation. Findings are most pronounced at L1-2 and L5-S1. Moderate mid and lower lumbar facet arthropathy. Soft tissues: Overlying bowel gas pattern is normal. No suspicious soft tissue calcifications. Surgical clips noted in the lower pelvis. Oblique images: No pars defects. IMPRESSION: Lumbar spine without acute osseous abnormalities or malalignment. No evidence for pars defects. Moderate multilevel lumbar spondylosis most pronounced at L1-2 and L5-S1. Dictated by: Dennis Riojas M.D. on 06/03/2025 at 9:47 Approved by: Dennis Riojas M.D. on 06/03/2025 at 9:49
== END ==
PROVIDERS: PCP Family Medicine; Referring Provider Physical Medicine & Rehabilitation; Visit Provider Physical Medicine & Rehabilitation
DX: M47.816 Spondylosis without myelopathy or radiculopathy, lumbar region (principal); M54.16 Radiculopathy, lumbar region; M54.42 Lumbago with sciatica, left side; M47.817 Spondylosis without myelopathy or radiculopathy, lumbosacral region
CPT/HCPCS: 72110